=== PATIENT | male | born 1960 | race Caucasian/White ===

== ENCOUNTER 2016-04-19 12:02 | Inpatient (IN) | payer MEDICARE, OTHER ==
--- NOTE | ~2016-04-19 | OR ---
Unit #: [id number] #: [id number] Patient: LUIS E GIRALDO SR [id number] [address] [place], [place] [address] [id number] I MR#: [id number] NAME: LUIS E GIRALDO SR ROOM: 464 Date of Procedure: 04/19/2016 Admission Date: 04/19/2016 Surgeon: Silvia Robertson M.D. : 1960 Attending Physician: Silvia Robertson M.D. Primary Care Physician: Abisai Pennington M.D. OPERATIVE REPORT PREOPERATIVE DIAGNOSES 1. Left postoperative foot infection. 2. Left first metatarsal base osteomyelitis. POSTOPERATIVE DIAGNOSES 1. Left postoperative foot infection. 2. Left first metatarsal base osteomyelitis. PROCEDURE PERFORMED Left foot incision and debridement with excision of the first metatarsal base (62297). USPS LETTER CARRIER Henri. ANESTHESIA General. INDICATIONS FOR SURGERY The patient is a 55-year-old poorly controlled diabetic, who is 3 weeks status post excision of the first metatarsal for osteomyelitis. The patient has had dehiscence of his proximal wound and now has purulent drainage. MRI documents osteo of his residual first metatarsal base. The patient is therefore to undergo excision of the first metatarsal base, excision of all infected tissue, and packing of the wound open. DESCRIPTION OF PROCEDURE The patient was taken to the operating room and placed in supine position. General anesthetic was induced. The left foot was identified as the correct operative extremity during the time-out procedure. The IV antibiotic protocol was followed. The left foot was then prepped and draped in the usual sterile fashion. The leg was exsanguinated with an Esmarch bandage, which was left wrapped around the ankle to act as a tourniquet. The antibiotic protocol was not followed. The sutures were removed and the incision was opened in its entirety and extended proximally an additional 2 cm. The first metatarsal base was exposed with subperiosteal dissection. Aerobic and anaerobic cultures were taken. The first metatarsal base was then excised in its entirety and sent to pathology for examination. All infected and necrotic appearing tissue was then removed sharply. The wound was then irrigated with 2 L of normal saline. The wound was packed open with Betadine-soaked Unit #: [id number] #: [id number] Patient: KRISTAL MALAVE,LUIS E Jj roll gauze, 4x4s, Kerlix, Oscar wrap, and postop shoe were applied. The patient was then transported to the recovery room in stable condition. ESTIMATED BLOOD LOSS Minimal. COMPLICATIONS None. SPECIMENS Left first metatarsal base and aerobic and anaerobic cultures. TOURNIQUET TIME Approximately 15 minutes. Dictated byKelly Quiles/tate TD: 04/20/2016 04:41 JOB #: [id number] OPERATIVE REPORT X Nadeem Robertson MD X PROCEDURE OPERATIVE NOTE
--- NOTE | ~2016-04-19 | CO ---
Unit #: [id number] #: [id number] Patient: LUIS E GIRALDO SR [id number] [address] [place], [place] [address] [id number] I MR#: [id number] NAME: LUIS E GIRALDO SR ROOM: 464 Age: 55 Sex: M Admission Date: 04/19/2016 : 1960 Attending Physician: Silvia Robertson M.D. Primary Care Physician: Abisai Pennington M.D. Requesting Physician: Silvia Robertson M.D. Consultation Date: 04/20/2016 CONSULTATION REPORT REASON FOR CONSULTATION Left foot infection. The patient is a 55-year-old male known to us from previous admission a few weeks ago when he had left foot infection and underwent incision and debridement with left first metatarsal amputation. Cultures were positive for Streptococcus milleri. The patient was sent out on daptomycin to be taken for six weeks with a stop date of April 28. He came back because of wound dehiscence and evidence of infection, status post I and D with first metatarsal base excision. Cultures are pending. Gram stain with Gram-negative rods. Infectious disease consultation requested for the evaluation of antibiotic management. Please refer to previous note for further details on the patient. PHYSICAL EXAMINATION Right now, he is sitting comfortably in bed, does not seem to be in any distress. VITAL SIGNS: T-max 101.5, pulse 81, respirations 20, blood pressure 150/68. HEENT: Unremarkable. CHEST: Clear to auscultation. HEART: Normal S1 and S2. ABDOMEN: Soft, nontender. EXTREMITIES: Foot with a dressing. DIAGNOSTIC STUDIES IMAGING: Chest x-ray negative for any acute changes. LABORATORY: BUN 31, creatinine 1.9, CPK 29, WBC 7.5, hemoglobin 7.1, platelets 273. Viral cultures pending. Gram stain with Gram-negative rods. ASSESSMENT 1. Left foot infection, status post first metatarsal excision: Cultures positive for Streptococcus milleri. 2. Wound dehiscence, now status post base of first metatarsal excision with gram stain showing Gram-negative rods. 3. Diabetes. 4. Peripheral vascular disease. 5. Morbid obesity. PLAN (1) . Continue with daptomycin. The patient seems to be Unit #: [id number] #: [id number] Patient: KRISTAL MALAVE,LUIS E Jj tolerating well and will go ahead and add aztreonam 2 g IV q.8 hours. He has got a history of anaphylaxis to penicillin. Will check ESR, CRP, follow up on his (2) cultures. Adjust antibiotics accordingly. Further recommendations depending upon the course. I would like to thank Dr. Robertson for asking us to participate in the care of this patient. We will follow this patient along with you. Dictated by... Kelly Garcia TD: 04/25/2016 07:22 JOB #: [id number] CONSULTATION REPORT X Javid Busby MD X CONSULTATION REPORT
--- NOTE | ~2016-04-19 | DS ---
Unit #: [id number] #: [id number] Patient: LUIS E GIRALDO SR [id number] [address] [place], [place] [address] [id number] I MR#: [id number] NAME: LUIS E GIRALDO SR ROOM: 464 Age: 55 Sex: M Admission Date: 04/19/2016 : 1960 Discharge Date: 04/25/2016 Attending Physician: Silvia Robertson M.D. Primary Care Physician: Abisai Pennington M.D. DISCHARGE SUMMARY CHIEF COMPLAINT Left foot infection. HISTORY OF PRESENT ILLNESS The patient is a 55-year-old male with poorly controlled insulin dependent diabetes who underwent left hallux debridement and then hallux disarticulation and then partial first metatarsal amputation by me 3 weeks ago who now has persistent purulent drainage from his wound. He is therefore admitted for removal of the remainder of the base of his first metatarsal. HOSPITAL COURSE The patient was taken to the operating room on 04/19/2016 where he underwent removal of the left fifth metatarsal base. The wound was left open and debrided. The wound was packed open and daily dressing changes were performed. The patient's cultures grew Klebsiella pneumoniae and Eggerthella. The patient was followed by the internal medicine service, by public speaking coach, and by infectious disease. He was ready for discharge on the sixth postoperative day. He was maintained on IV Cubicin and meropenem. His wound markedly improved and showed appropriate granulation tissue and no further purulence. FINAL DIAGNOSES Left diabetic foot amputation. OPERATION PERFORMED Left first metatarsal base excision. DISPOSITION AND RECOMMENDATIONS 1. The patient is discharged to rehab. He will continue physical therapy and occupational therapy at that location. He may weightbear partially on his heel in a postoperative shoe. 2. Daily dressing changes using 1/2 strength Dakin to the left foot, wet to dry. 3. Follow up in my office in one week. Call [phone] to make the appointment. DISCHARGE MEDICATIONS Discharge medications are as follows: 1. Diphenhydramine hydrochloride 25 mg p.o. q.6 hours p.r.n. itching. 2. Promethazine 12.5 mg p.o. q.4 hours p.r.n. nausea. 3. Coreg 25 mg p.o. b.i.d. 4. Amlodipine 10 mg p.o. daily. 5. Colace 100 mg p.o. b.i.d. Unit #: [id number] #: [id number] Patient: LUIS E GIRALDO SR 6. Milk of magnesia 30 mL p.o. daily p.r.n. constipation. 7. Lasix 40 mg p.o. b.i.d. and 20 mg p.o. daily as needed for edema. 8. Lipitor 20 mg p.o. q.h.s. 9. Hydralazine 50 mg p.o. t.i.d. 10. Levemir insulin FlexTouch 20 units subcutaneously daily. 11. Insulin NovoLog per sliding scale. 12. Famotidine 20 mg p.o. daily. 13. Aspirin 81 mg p.o. daily. 14. Percocet 5/325 one to two p.o. q.6 hours p.r.n. pain. 15. Nitroglycerin sublingual 0.4 mg p.r.n. chest pain. 16. Daptomycin 800 mg IV daily. 17. Meropenem 500 mg IV q.12 hours. Dictated by..Kelly Wright/brayan TD: 04/25/2016 09:05 JOB #: [id number] DISCHARGE SUMMARY X Nadeem Robertson MD X DISCHARGE SUMMARY
--- NOTE | ~2016-04-19 | CO ---
Unit #: [id number] #: [id number] Patient: LUIS E RALPH SR [id number] [address] [place], [place] [address] [id number] I MR#: [id number] NAME: LUIS E RALPH SR ROOM: 464 Age: 55 Sex: M Admission Date: 04/19/2016 : 1960 Attending Physician: Silvia Robertson M.D. Primary Care Physician: Abisai Pennington M.D. Requesting Physician: Silvia Robertson M.D. Consultation Date: 04/19/2016 CONSULTATION REPORT REASON FOR CONSULTATION Medical management. HISTORY OF PRESENT ILLNESS Mr. Ralph is a 55-year-old male well known to our service secondary to a recent admission. He is a patient of Dr. Pennington, who was discharge from our service on April 04, 2016 after hospitalization secondary to acute renal failure along with the metabolic acidosis and hyperkalemia. Patient also does have a history of left foot osteo. He is status post big toe amputation per Dr. Robertson, was also evaluated at that hospitalization, was treated with the antibiotics and subsequently was discharged to a rehab facility secondary to frequent falls and general deconditioning. Patient was brought back by orthopedic surgery and he underwent the left foot I/D with the debridement per Dr. Robertson. Our consult was kindly asked for general medical management and diabetes management since patient does have a history of insulin-dependent diabetes. Patient currently denies any active problems. He denies any acute chest pain, shortness of air or dyspnea, headache, dizziness, fever or chills, nausea, vomiting, diarrhea or abdominal pain. Again, he is a postop from left foot debridement, resting comfortably, states the pain is well under control. REVIEW OF SYSTEMS So, a 12-point review of systems on this patient basically is negative except as above. PAST MEDICAL HISTORY Past medical history is significant for: 1. History of insulin-dependent diabetes. 2. Hypertension. 3. Dyslipidemia. 4. Peripheral vascular disease. 5. Left lower extremity osteo. 6. Morbid obesity. 7. Left lower extremity gangrene and osteomyelitis. PAST SURGICAL HISTORY Past surgical history is significant for: 1. Left big toe hallux amputation. 2. Ultrasound-guided cannulation of the right common femoral artery, abdominal arteriogram with the balloon dilation per Vascular Surgery. 3. Recent left first metatarsal amputation from March of this year from the previous hospitalization. Unit #: [id number] #: [id number] Patient: LUIS E RALPH SR CURRENT MEDICATIONS Current medications on this gentleman include Ambien, Cubicin, hydralazine, Lipitor, Coreg, Colace, furosemide, sliding scale insulin, Nitrostat p.r.n., milk of magnesia, Benadryl, morphine, Percocet, Pepcid, Norvasc, topical HySept, aspirin, Levemir 20 units subcu q.a.m., and [place] p.r.n. ALLERGIES Penicillin. SOCIAL HISTORY No current tobacco, alcohol or illicit drugs. FAMILY HISTORY Unremarkable. PHYSICAL EXAMINATION GENERAL: Patient is a 55-year-old gentleman who is morbidly obese, not in no acute distress. VITAL SIGNS: BP 152/67, heart rate 77, respirations 18, temperature 97.6. HEENT: Head is atraumatic. Pupils equal, round and reactive to light and accommodation. Extraocular muscles intact. Oropharynx clear. NECK: Supple. No mass. No JVD. No bruits. CHEST: Diminished at the bases but generally clear. CARDIOVASCULAR EXAM: S1, S2. No murmurs. ABDOMEN: Obese, soft, nontender and nondistended. Bowel sounds present. EXTREMITIES: Lower extremities with some trace edema. There is a clean dressing on the left foot. DIAGNOSTIC STUDIES LABORATORY: Only available CBC from yesterday which showed a white count of 7.9, hemoglobin and hematocrit 8.7 and 26.2. Blood glucose 128 and then 169. ASSESSMENT AND PLAN 1. History of left foot osteomyelitis, status post left big toe and then metatarsal amputation status post recent I/D done today: Continue local wound care per Orthopedic Surgery. Continue current antibiotics. 2. History of recent acute renal failure: Will check chemistry, continue gentle hydration. 3. History of peripheral vascular disease, status post balloon dilation per Vascular Surgery in the past. 4. Insulin-dependent diabetes, currently acceptable control: Continue current insulin regime. 5. Morbid obesity. 6. Hypertension: Continue current. 7. Anemia of chronic disease: Monitor hemoglobin and hematocrit closely. 8. GI and DVT prophylaxis: Continue Pepcid. We will start on subcu heparin if okay with orthopedic surgery. I would like to thank Dr. Robertson for allowing us to participate in this patient's care. We will follow the patient along with you. Unit #: [id number] #: [id number] Patient: LUIS E RALPH SR Dictated by..Alin Anthony M.D. OC/cf TD: 04/19/2016 22:27 JOB #: [id number] CONSULTATION REPORT X Bishop Anthony MD CONSULTATION REPORT
--- NOTE | ~2016-04-19 | OR ---
Unit #: [id number] #: [id number] Patient: LUIS E GIRALDO SR [id number] [address] [place], [place] [address] [id number] MR#: [id number] NAME: LUIS E GIRALDO SR ROOM: 464 Date of Procedure: 03/28/2016 Admission Date: 04/19/2016 Surgeon: Isaiah Ferguson M.D. : 1960 Attending Physician: Silvia Robertson M.D. Primary Care Physician: Abisai Pennington M.D. OPERATIVE REPORT PROCEDURE PERFORMED Non-tunneled dialysis catheter placement. PREOPERATIVE DIAGNOSIS Acute renal injury, requiring dialysis. POSTOPERATIVE DIAGNOSIS Acute renal injury, requiring dialysis. INDICATIONS FOR PROCEDURE This is a 55-year-old gentleman known to our service, who had recently undergone an angiogram and left lower extremity angioplasty. He now presents emergently to the emergency room with elevated creatinine and potassium, required dialysis. I talked to the patient about the risks and benefits of the bedside procedure. The risks include, but not limited to, pneumothorax requiring thoracostomy, injury to the blood vessels, bleeding, line infection, line malposition, and need for further procedures. The benefit of the procedure would be for the patient to receive immediate dialysis. The patient expressed understanding and elected to proceed. DESCRIPTION OF PROCEDURE After informed consent was obtained, the patient was prepped and draped in standard fashion. Using ultrasound, I confirmed his right internal jugular vein was widely patent. The patient was given 1% lidocaine into the skin, I then accessed the right internal jugular vein with ultrasound, with a micro- needle, then advanced a micro-Glidewire, I then advanced a micro-sheath catheter. There was no pulsatile flow noted from the micro-sheath catheter. I then advanced a starter wire, which went smoothly. I then serially dilated the neck incision. I then advanced the non-tunneled dialysis catheter to the hub. All ports were flushed and aspirated easily. The catheter was then secured into place with 3-0 nylons. Sterile dressings were applied. The patient tolerated the procedure well. Postprocedure chest x-ray was ordered for confirmation in position. Dictated by... Isaiah Ferguson M.D. Loree Unit #: [id number] #: [id number] Patient: LUIS E GIRALDO SR TD: 04/24/2016 00:47 JOB #: [id number] OPERATIVE REPORT X X PROCEDURE OPERATIVE NOTE
--- NOTE | ~2016-04-19 | CO ---
Unit #: [id number] #: [id number] Patient: LUIS E RALPH SR [id number] [address] [place], [place] [address] [id number] Nina MR#: [id number] NAME: LUIS E RALPH SR ROOM: 464 Age: 55 Sex: M Admission Date: 04/19/2016 : 1960 Attending Physician: Silvia Robertson M.D. Primary Care Physician: Abisai Pennington M.D. Consultation Date: 04/21/2016 CONSULTATION REPORT REASON FOR CONSULT Renal failure, hyperkalemia. Thank you very much for asking us to see this patient in consultation. HISTORY OF PRESENT ILLNESS Mr. Luis E Ralph is a 55-year-old gentleman, who I actually saw in March of this year, where he had acute renal failure, severe hyperkalemia with a creatinine of 6.7 and a potassium of 7.2. In the emergency room at that time, I felt he had renal failure from contrast dye for previous arteriogram as well as possible Bactrim as well as a wound infection in the left foot, osteomyelitis. He underwent emergent hemodialysis. His renal function improved with creatinine down to 2.2 when he was discharged on 04/05/2016 and was down to 1.6 on 04/16/2016. He presented to the hospital here, where he underwent debridement of his left foot wound on 04/19/2016. He has grown out Klebsiella ESBL. He was sent home on Cubicin, is now switched over to Merrem. His creatinine was 2.0 yesterday and up to 2.4 today with a potassium of 5.7 today. Because of this, I was asked to see the patient. I do not see any obvious non-steroidals or obvious nephrotoxins at this point in time. He is alert. He is eating okay. His foot sore, but not bad. He denies any shortness of breath, chest pain, any nausea or vomiting. He denies any urinary symptoms. Currently, he denies any cough or any other issues. PAST MEDICAL HISTORY History of severe peripheral vascular disease as mentioned above with status post left foot wound debridement with osteomyelitis, history of obesity, history of diabetes mellitus. He has a history of appears to have acute renal failure that again improved. During the hospitalization, he had negative serum protein immunofixation, normal components. Negative hepatitis C. He did have a ratio of protein-creatinine around 3 g. It was felt he probably had underlying diabetic renal disease. He had a negative renal ultrasound at that time. He has a history of hyperlipidemia, history of hypertension, history of anemia. MEDICATIONS Currently include Merrem. His Cubicin has been discontinued. Carvedilol, hydralazine, Lipitor, Lasix 40 mg b.i.d. He is on Pepcid as well as Norvasc 10 mg a day. He was given Kayexalate 30 g p.o. x1 dose earlier today. SOCIAL HISTORY Previous smoker, none now. . No alcohol. Unit #: [id number] #: [id number] Patient: LUIS E RALPH SR ALLERGIES Allergic to penicillin. FAMILY HISTORY Negative for any kidney disease. REVIEW OF SYSTEMS As mentioned in the HPI, otherwise negative. PHYSICAL EXAMINATION GENERAL: He is alert and oriented. VITAL SIGNS: Temperature is 98.8, although it was 101.5 the first few hours of admission; pulse 69 to 80; blood pressure 109 to 135 over 30s to 50s. HEENT: Normocephalic and atraumatic. Pupils are equal, round, and reactive to light. Extraocular muscles are intact. Hearing appears to be normal. Mouth is clear. No erythema. No exudate. NECK: Supple. No adenopathy. CARDIAC: Regular rhythm without a rub. No S3 or S4. LUNGS: Clear bilaterally. No wheezes, rhonchi, or rales. ABDOMEN: Overweight. Bowel sounds positive. Nontender, soft. He has some trace body edema. EXTREMITIES: He has positive lower extremity edema bilaterally. His left foot is dressed. Skin: No acute rashes. NEUROLOGIC: Grossly intact. : Deferred. DIAGNOSTIC STUDIES LABORATORY RESULTS: Shows sodium of 136, potassium 5.7, chloride is 105, bicarb is 24, BUN and creatinine are 34 and 2.4, glucose 128, calcium is 8.1. CPK is 44. Hemoglobin is down to 7.3, white count 10,100, platelets 298,000. Again, wound has grown out ESBL Klebsiella. ASSESSMENT AND PLAN 1. Acute renal failure. Again, the patient with increasing BUN and creatinine. I do not see any obvious nephrotoxins. Certainly, it could just be related to surgery. He does have some increased edema, but he is also on some IV fluids and Lasix and he is taking orally and what I would like to just go ahead and discontinue both his fluids and his Lasix and see how he does on his own. Certainly, he is on amlodipine and that could be contributing to his edema. We will check a BMP later tonight and again in the morning. We will check a bladder scan for postvoid residual. We will repeat UA, culture and sensitivity, urine eosinophils. 2. Hyperkalemia secondary to renal insufficiency. We will change his diet to a low-potassium diet, Kayexalate x1. We will check potassium later this evening and treat medically unless it worsens significantly. Would certainly stay away from any type of potassium-retaining drugs. 3. Hypertension, again due to his renal insufficiency and his hyperkalemia. Avoid BECCA inhibitors, angiotensin receptor blockers, and potassium-sparing diuretics. 4. History of extended-spectrum beta-lactamases Klebsiella, osteomyelitis, wound infection. 5. Diabetes mellitus. 6. Anemia. The patient's hemoglobin is dropping. One unit of packed red blood cells had been ordered by primary. Unit #: [id number] #: [id number] Patient: MELTONY MLAAVE,LUIS E Jj Dictated by..Kelly Rainey/tate TD: 04/22/2016 05:42 JOB #: [id number] CONSULTATION REPORT X Aracelis Sharma MD X CONSULTATION REPORT
--- NOTE | ~2016-04-19 | CR72 ---
[facility] A Service of [facility] & [facility] RADIOLOGY TEXT RESULTS PATIENT: LUIS E GIRALDO SR LOCATION: [facility]- : [birth year] UNIT #: [id number] AGE: [address]: Nadeem Robertson MD SEX: M ORDER DR: [id number] [facility] [address]. [place], [place] [address] [id number] MR#: [id number] Acc #: [id number] NAME: LUIS E GIRALDO SR : 1960 SEX: M STUDY DATE/TIME: 04/22/2016 0119 UNIT: [facility] ROOM: Count includes the [facility] STUDY DESCRIPTION: CR Chest Single View Portable Attending Physician: Silvia Robertson M.D. Ordering Physician: Silvia Robertson M.D. Primary Care Physician: Abisai Pennington M.D. MEDICAL IMAGING REPORT This report is preliminary unless electronic signature is present EXAM Portable chest, 04/22 at 0119 hours. INDICATION PICC placement today. FINDINGS AP portable chest compared with 03/28/2016. Right IJ line has been removed. Right arm PICC is in the SVC. Heart size stable. Left lung clear. Mild infiltrate or atelectasis at the right base with a small volume of right pleural fluid. No pneumothorax. Dictated by... Luis E Schrader Jr., M.D. THIS IS AN ELECTRONICALLY VERIFIED REPORT Luis E Schrader Jr., M.D. at 04/22/2016 8:38 PM DIANE/stefano TD: 04/22/2016 10:05 JOB #: [id number] MEDICAL IMAGING REPORT COPY
--- NOTE | ~2016-04-19 | EKG ---
PATIENT: LUIS E GIRALDO UNIT #: [id number] Ventricular Rate: 83 BPM Atrial Rate: 83 BPM P-R Interval: 144 ms QRS Duration: 98 ms Q-T Interval: 354 ms QTC Calculation(Bezet): 415 ms P [place]: 24 degrees Calculated R [place]: 44 degrees Calculated T [place]: -29 degrees Diagnosis Line: Normal sinus rhythm Diagnosis Line: Nonspecific ST and T wave abnormality Diagnosis Line: Abnormal ECG Diagnosis Line: Diagnosis Line: Confirmed by ZOE TAFOYA MD ([id number]) on Diagnosis Line: 04/22/2016 5:18:25 PM INTERPRETING MD: DANNY
[~2016-04-19 12:02] MED LIST: ACETAMINOPHEN325 MG PO; ASPIRIN EC81 M1 PO; ASPIRIN81 M1 PO; BACTRIM DS TABL1 TA1 PO; CARVEDILOL25 MG PO; COREG PO; COREG3.125 MG PO; ERY-TAB333 M1 PO; FARXIGA5 MG; GLIPIZIDE10 MG PO; GLUCOPHAGE500 MG PO; GLUCOTROL10 MG PO; GLUCOVANCE 1.251 TAB PO; GLYBURIDE PO; HYDROCODON-ACE1 EAC5 PO; KEFLEX500 MG PO; LASIX PO; LASIX20 MG PO; LEVAQUIN750 M1 PO; LEVEMIR FL100 UNIT/1 SUBQ; LIPITOR20 MG PO; METFORMIN PO; NEURONTIN300 MG PO; NITRODISC0.4 MG SL; NITROGLYGERIN0.4 MG SL; NO MEDICATIONS; PRAVASTATIN SOD40 MG PO; PRILOSEC PO; ULTRAM PO; ZESTRIL5 MG PO; ZITHROMAX PO; [UNRECOGNIZED DRUG - OTHER]
[2016-04-19] MEDS ORDERED: FUROSEMIDE40 MG PO (12:38)
[2016-04-19] MEDS ORDERED: AMLODIPINE BESY10 MG PO (12:41)
[2016-04-19] MEDS ORDERED: HYDRALAZINE HCL50 MG PO (12:41)
[2016-04-19] MEDS ORDERED: FAMOTIDINE20 M1 PO (12:41)
[2016-04-19] MEDS ORDERED: PERCOCET 5-3251 TAB PO (12:42)
[2016-04-19] MEDS ORDERED: DOCUSATE SODIU100 MG PO (12:42)
[2016-04-19] MEDS ORDERED: PROMETHAZINE12.5 MG PO (12:43)
[2016-04-19] MEDS ORDERED: BANOPHEN25 M1 PO (12:43)
[2016-04-19] MEDS ORDERED: MILK OF MAGNESIA PO (12:44)
[2016-04-19] MEDS ORDERED: LASIX20 MG PO (12:44)
[2016-04-19] MEDS ORDERED: NOVOLOG100 U/ML (12:45)
[2016-04-19] MEDS ORDERED: CUBICIN IV (12:50)
[2016-04-20 07:03] LABS: BASOPHIL# 0.2 X10e3 (0-0.3); BASOPHIL% 1.5 % (0-2.5); EOSINOPHIL# 0.4 X10e3 (0-0.7); EOSINOPHIL% 3.9 % (0.0-7.0); HEMATOCRIT 25.6 % (38.0-50.0); HEMOGLOBIN 8.1 gm/dL (13.0-16.0); LYMPHOCYTE# 2.4 X10e3 (1.0-3.5); LYMPHOCYTE% 21.5 % (17.0-45.0); MEAN CELL VOLUME 85.4 FL (83-96); MEAN CORPUSCULAR HEMOGLOBIN 27.1 PG (28-34); MEAN CORPUSCULAR HGB CONC 31.7 g/dL (30-36); MEAN PLATELET VOLUME 7.3 FL (6.5-11.5); MONOCYTE# 1.3 X10e3 (0-1.0); MONOCYTE% 11.9 % (3.0-12.0); NEUTROPHIL# 6.8 X10e3 (1.5-7.1); NEUTROPHIL% 61.2 % (40-75); PLATELET COUNT 378 X10e3 (140-420); RED BLOOD COUNT 2.99 X10e (3.90-5.60); WHITE BLOOD COUNT 11.1 X10e3 (4.0-10.5)
[2016-04-20 07:04] LABS: DIFF IND NO
[2016-04-20 07:44] LABS: CALCIUM SERUM 8.2 mg/dL (8.4-10.2); GLOM FILT RATE Estimated 37.1 mL/min (>60); POTASSIUM 4.7 mmol/L (3.5-5.1)
[2016-04-21 03:34] LABS: HEMATOCRIT 21.9 % (38.0-50.0); HEMOGLOBIN 7.3 gm/dL (13.0-16.0); MEAN CELL VOLUME 85.7 FL (83-96); MEAN CORPUSCULAR HEMOGLOBIN 28.6 PG (28-34); MEAN CORPUSCULAR HGB CONC 33.3 g/dL (30-36); RED BLOOD COUNT 2.55 X10e (3.90-5.60); RED CELL DISTRIBUTION WIDTH 15.9 % (11.0-15.5); WHITE BLOOD COUNT 10.1 X10e3 (4.0-10.5)
[2016-04-21 03:43] LABS: BUN/CREATININE RATIO 14.16; CALCIUM SERUM 8.1 mg/dL (8.4-10.2); CREATININE SERUM 2.4 mg/dL (0.6-1.4)
[2016-04-21 04:17] LABS: POTASSIUM 5.7 mmol/L (3.5-5.1)
[2016-04-21 18:02] LABS: BUN/CREATININE RATIO 15.71; CALCIUM SERUM 7.8 mg/dL (8.4-10.2); CREATININE SERUM 2.1 mg/dL (0.6-1.4); POTASSIUM 4.7 mmol/L (3.5-5.1)
[2016-04-22 04:04] LABS: BASOPHIL# 0.1 X10e3 (0-0.3); BASOPHIL% 0.9 % (0-2.5); EOSINOPHIL# 0.8 X10e3 (0-0.7); EOSINOPHIL% 10.8 % (0.0-7.0); HEMOGLOBIN 7.1 gm/dL (13.0-16.0); LYMPHOCYTE# 2.2 X10e3 (1.0-3.5); LYMPHOCYTE% 29.2 % (17.0-45.0); MEAN CELL VOLUME 84.7 FL (83-96); MEAN CORPUSCULAR HEMOGLOBIN 28.8 PG (28-34); MEAN PLATELET VOLUME 7.5 FL (6.5-11.5); MONOCYTE# 0.8 X10e3 (0-1.0); MONOCYTE% 10.5 % (3.0-12.0); NEUTROPHIL# 3.6 X10e3 (1.5-7.1); NEUTROPHIL% 48.6 % (40-75); PLATELET COUNT 273 X10e3 (140-420); RED BLOOD COUNT 2.48 X10e (3.90-5.60); RED CELL DISTRIBUTION WIDTH 16.1 % (11.0-15.5); WHITE BLOOD COUNT 7.5 X10e3 (4.0-10.5)
[2016-04-22 04:06] LABS: DIFF IND YES
[2016-04-22 04:21] LABS: ALBUMIN SERUM 2.4 g/dL (3.5-5.0); BILIRUBIN,TOTAL 0.5 mg/dL (0.2-2.0); BUN/CREATININE RATIO 16.31; CALCIUM SERUM 7.6 mg/dL (8.4-10.2); CREATININE SERUM 1.9 mg/dL (0.6-1.4); GLOM FILT RATE Estimated 39.3 mL/min (>60); MAGNESIUM 1.9 mg/dL (1.6-3.0); PHOSPHOROUS 5.4 mg/dL (2.5-4.6); POTASSIUM 4.1 mmol/L (3.5-5.1); PROTEIN TOTAL SERUM 5.6 g/dL (6.0-8.3)
[2016-04-22 05:02] LABS: PLATELET ESTIMATE NORMAL (NORMAL)
[2016-04-22 08:28] LABS: CK TOTAL 30 IU/L (36-174)
[2016-04-22 16:04] LABS: URINE SOURCE CLEAN CATCH
[2016-04-22 16:13] LABS: URINE APPEARANCE CLEAR; URINE BILIRUBIN NEG (NEG); URINE BLOOD 3+ (NEG); URINE COLOR YELLOW; URINE GLUCOSE NEG (NEG); URINE KETONE NEG (NEG); URINE LEUKOCYTE ESTERASE NEG (NEG); URINE NITRATE NEG (NEG); URINE PH 5.5 (5-8); URINE PROTEIN 3+ (NEG); URINE SPECIFIC GRAVITY 1.023 (1.003-1.035)
[2016-04-22 16:15] LABS: URBCS1 AUWI 200-300 /[HPF] (0-2); URINE BACTERIA AUWI NEG (NEGATIVE); URINE SQUAMOUS EPITHELIAL CELL FEW /[HPF]
[2016-04-22 16:20] LABS: U HYALINE CASTS AUWI 0-2 /[LPF]
[2016-04-23 09:29] LABS: BASOPHIL# 0.1 X10e3 (0-0.3); BASOPHIL% 1.1 % (0-2.5); EOSINOPHIL# 0.9 X10e3 (0-0.7); EOSINOPHIL% 10.5 % (0.0-7.0); HEMATOCRIT 25.7 % (38.0-50.0); HEMOGLOBIN 8.7 gm/dL (13.0-16.0); LYMPHOCYTE# 2.4 X10e3 (1.0-3.5); LYMPHOCYTE% 27.2 % (17.0-45.0); MEAN CELL VOLUME 84.9 FL (83-96); MEAN CORPUSCULAR HEMOGLOBIN 28.7 PG (28-34); MEAN CORPUSCULAR HGB CONC 33.8 g/dL (30-36); MEAN PLATELET VOLUME 7.4 FL (6.5-11.5); MONOCYTE# 0.7 X10e3 (0-1.0); MONOCYTE% 7.8 % (3.0-12.0); NEUTROPHIL# 4.7 X10e3 (1.5-7.1); NEUTROPHIL% 53.4 % (40-75); PLATELET COUNT 352 X10e3 (140-420); RED BLOOD COUNT 3.02 X10e (3.90-5.60); RED CELL DISTRIBUTION WIDTH 15.6 % (11.0-15.5); WHITE BLOOD COUNT 8.9 X10e3 (4.0-10.5)
[2016-04-23 09:46] LABS: DIFF IND NO
[2016-04-23 10:00] LABS: BUN/CREATININE RATIO 16.66; CALCIUM SERUM 8.1 mg/dL (8.4-10.2); CREATININE SERUM 1.5 mg/dL (0.6-1.4); GLOM FILT RATE Estimated 51.6 mL/min (>60); MAGNESIUM 1.9 mg/dL (1.6-3.0); POTASSIUM 4.3 mmol/L (3.5-5.1)
[2016-04-24 03:24] LABS: BASOPHIL# 0.1 X10e3 (0-0.3); BASOPHIL% 0.9 % (0-2.5); DIFF IND NO; EOSINOPHIL% 10.6 % (0.0-7.0); HEMATOCRIT 24.7 % (38.0-50.0); HEMOGLOBIN 8.4 gm/dL (13.0-16.0); LYMPHOCYTE# 3.3 X10e3 (1.0-3.5); LYMPHOCYTE% 33.9 % (17.0-45.0); MEAN CELL VOLUME 85.1 FL (83-96); MEAN CORPUSCULAR HEMOGLOBIN 28.9 PG (28-34); MEAN PLATELET VOLUME 7.3 FL (6.5-11.5); MONOCYTE# 0.7 X10e3 (0-1.0); MONOCYTE% 7.5 % (3.0-12.0); NEUTROPHIL# 4.6 X10e3 (1.5-7.1); NEUTROPHIL% 47.1 % (40-75); PLATELET COUNT 332 X10e3 (140-420); RED CELL DISTRIBUTION WIDTH 15.7 % (11.0-15.5); WHITE BLOOD COUNT 9.7 X10e3 (4.0-10.5)
[2016-04-24 03:42] LABS: BLOOD UREA NITROGEN 25 mg/dL (9-23); BUN/CREATININE RATIO 19.23; CALCIUM SERUM 8.1 mg/dL (8.4-10.2); CARBON DIOXIDE 26 mmol/L (22-31); CHLORIDE 111 mmol/L (100-111); CPK (CREATINE PHOSPHOKINASE) 22 IU/L (36-174); CREATININE SERUM 1.3 mg/dL (0.6-1.4); GLOM FILT RATE Estimated ABOVE60 mL/min (>60); GLUCOSE FASTING 135 mg/dL (70-110); POTASSIUM 4.4 mmol/L (3.5-5.1); SODIUM 141 mmol/L (135-145)
[2016-04-24 06:17] LABS: URINE SOURCE CLEAN CATCH
[2016-04-24 06:24] LABS: URINE APPEARANCE CLEAR; URINE BILIRUBIN NEG (NEG); URINE BLOOD 3+ (NEG); URINE COLOR YELLOW; URINE GLUCOSE NEG (NEG); URINE KETONE NEG (NEG); URINE LEUKOCYTE ESTERASE NEG (NEG); URINE NITRATE NEG (NEG); URINE PH 6.5 (5-8); URINE PROTEIN 3+ (NEG); URINE SPECIFIC GRAVITY 1.015 (1.003-1.035); URINE UROBILINOGEN 0.2 MG/DL (NEG)
[2016-04-24 06:26] LABS: CULTURE INDICATED? YES; URBCS1 AUWI 50-100 /[HPF] (0-2); URINE BACTERIA AUWI NEG (NEGATIVE); URINE SQUAMOUS EPITHELIAL CELL OCC /[HPF]
[2016-04-25 04:00] LABS: CALCIUM SERUM 8.1 mg/dL (8.4-10.2); CREATININE SERUM 1.5 mg/dL (0.6-1.4); GLOM FILT RATE Estimated 51.6 mL/min (>60); POTASSIUM 4.4 mmol/L (3.5-5.1)
[2016-04-26 08:04] LABS: BASOPHIL% 0.1 % (0-2.5); EOSINOPHIL% 10.8 % (0.0-7.0); HEMATOCRIT 27.2 % (38.0-50.0); HEMOGLOBIN 9.2 gm/dL (13.0-16.0); LYMPHOCYTE# 3.4 X10e3 (1.0-3.5); LYMPHOCYTE% 35.2 % (17.0-45.0); MEAN CELL VOLUME 85.6 FL (83-96); MEAN CORPUSCULAR HEMOGLOBIN 28.9 PG (28-34); MEAN CORPUSCULAR HGB CONC 33.7 g/dL (30-36); MONOCYTE# 0.7 X10e3 (0-1.0); MONOCYTE% 6.9 % (3.0-12.0); NEUTROPHIL# 4.5 X10e3 (1.5-7.1); PLATELET COUNT 375 X10e3 (140-420); RED BLOOD COUNT 3.18 X10e (3.90-5.60); RED CELL DISTRIBUTION WIDTH 15.9 % (11.0-15.5); WHITE BLOOD COUNT 9.7 X10e3 (4.0-10.5)
[2016-04-26 08:12] LABS: DIFF IND NO
[2016-04-26 08:32] LABS: BUN/CREATININE RATIO 14.66; CALCIUM SERUM 8.9 mg/dL (8.4-10.2); CREATININE SERUM 1.5 mg/dL (0.6-1.4); GLOM FILT RATE Estimated 51.6 mL/min (>60); POTASSIUM 4.9 mmol/L (3.5-5.1)
[2016-04-26] MEDS ORDERED: MERREM500 MG INJ (11:32)
[2016-05-05] MEDS ORDERED: IRON325 ( 651 PO (06:24)
[2016-05-05] MEDS ORDERED: NEURONTIN800 MG PO (06:24)
[2016-05-05] MEDS ORDERED: PRILOSEC PO (06:25)
== END 2016-04-26 13:55 | disposition home health service (06) | DRG 857 ==
LOC: CSUR 12:02 → CPACUOF 14:29 → C4C 16:30
PROVIDERS: Hospitalist; Internal Medicine Infectious Disease; Internal Medicine Nephrology; Orthopaedic Surgery; Physician Assistant Medical
PROC: 0QTP0ZZ Resection of Left Metatarsal, Open Approach (ICD-10-PCS; principal; 2016-04-19 13:00)
PROC: 30233N1 Transfusion of Nonautologous Red Blood Cells into Peripheral Vein, Percutaneous Approach (ICD-10-PCS; 2016-04-22)
PROC: 02HV33Z Insertion of Infusion Device into Superior Vena Cava, Percutaneous Approach (ICD-10-PCS; 2016-04-22)
PROC: B548ZZA Ultrasonography of Superior Vena Cava, Guidance (ICD-10-PCS; 2016-04-22)
PROC: 05HM33Z Insertion of Infusion Device into Right Internal Jugular Vein, Percutaneous Approach (ICD-10-PCS; 2016-04-23)
PROC: B543ZZA Ultrasonography of Right Jugular Veins, Guidance (ICD-10-PCS; 2016-04-23)
DX: T81.4XXA Infection following a procedure, initial encounter (principal); T81.30XA Disruption of wound, unspecified, initial encounter; N17.9 Acute kidney failure, unspecified; M86.8X7 Other osteomyelitis, ankle and foot; E87.5 Hyperkalemia; E11.22 Type 2 diabetes mellitus with diabetic chronic kidney disease; E66.01 Morbid (severe) obesity due to excess calories; B96.1 Klebsiella pneumoniae [K. pneumoniae] as the cause of diseases classified elsewhere; I73.9 Peripheral vascular disease, unspecified; E66.9 Obesity, unspecified; Z88.0 Allergy status to penicillin; Z87.891 Personal history of nicotine dependence; D64.9 Anemia, unspecified; Z79.4 Long term (current) use of insulin; D63.1 Anemia in chronic kidney disease; Z79.82 Long term (current) use of aspirin; E11.65 Type 2 diabetes mellitus with hyperglycemia; I12.9 Hypertensive chronic kidney disease with stage 1 through stage 4 chronic kidney disease, or unspecified chronic kidney disease; N18.9 Chronic kidney disease, unspecified
CPT/HCPCS: 71010; 80048; 80053; 81003; 82274; 82550; 82728; 82947; 83540; 83735; 84100; 84484; 84550; 85025; 85027; 85652; 86140; 86850; 86900; 86901; 86923; 87070; 87075; 87076; 87077; 87086; 87186; 87205; 88305; 88311; 89190; 93005; J0878; J1644; J1815; J2185; J2250; J2270; J2765; J2997; P9016

== ENCOUNTER 2016-05-05 07:08 | Inpatient (IN) | payer MEDICARE, OTHER ==
--- NOTE | ~2016-05-05 | CO ---
Unit #: [id number] #: [id number] Patient: LUIS E GIRALDO SR [id number] [address] [place], [place] [address] [id number] I MR#: [id number] NAME: LUIS E GIRALDO SR ROOM: 341 Age: 55 Sex: M Admission Date: 05/05/2016 : 1960 Attending Physician: Estrella Calvert M.D. Primary Care Physician: Abisai Pennington M.D. Consultation Date: 05/06/2016 CONSULTATION REPORT CHIEF COMPLAINT Left foot wound. HISTORY OF PRESENT ILLNESS The patient is a 55-year-old male, who has undergone three operations on his left foot within the past 6 weeks. His last procedure was resection of his left first metatarsal on 04/19/2016 for osteomyelitis of the first metatarsal. The patient has been undergoing serial dressing changes with 1/4 strength Dakin solution. He is on home IV meropenem for a Klebsiella and Eggerthella infection of the foot. He has been followed by Dr. Busby, Infectious Disease senior billing consultant. The patient is now admitted for exacerbation of congestive heart failure. PAST MEDICAL HISTORY Remarkable for insulin-dependent diabetes; acute kidney disease; hypertension; dyslipidemia; morbid obesity; history of peripheral vascular disease, status post balloon angioplasty; anemia; congestive heart failure. PAST SURGICAL HISTORY Multiple left foot surgeries, right and left leg arteriogram. HOME MEDICATIONS Meropenem, Coreg, aspirin, nitroglycerin, Lipitor, insulin, Lasix, hydralazine, amlodipine, daptomycin, iron, Neurontin, Prilosec. ALLERGIES Penicillin. SOCIAL HISTORY The patient is a nonsmoker. PHYSICAL EXAMINATION GENERAL: This is an obese male, in no acute distress. VITAL SIGNS: The patient is afebrile. Examination of his left foot shows an absent hallux and first ray. He has a 5 cm long by 2 cm wide granulating wound and is a medial midfoot. There was no purulent drainage. Pulses are not palpated. There was marked swelling in both lower extremities. There is no erythema or warmth. No x-rays were taken. IMPRESSION Doing well 2-1/2 weeks status post left first metatarsal amputation with a medial foot wound, which is healing by secondary intention. Unit #: [id number] #: [id number] Patient: KRISATL MALAVE,LUIS E Jj PLAN Continue IV meropenem and daptomycin. Continue daily dressing changes with 1/4 strength Dakin's. We will follow during this hospitalization. Dictated byKelly Quiles/tate TD: 05/06/2016 16:04 JOB #: [id number] CONSULTATION REPORT X Nadeem Robertson MD X CONSULTATION REPORT
--- NOTE | ~2016-05-05 | CO ---
Unit #: [id number] #: [id number] Patient: LUIS E RALPH SR [id number] [address] [place], [place] [address] [id number] I MR#: [id number] NAME: LUIS E RALPH SR ROOM: 341 Age: 55 Sex: M Admission Date: 05/05/2016 : 1960 Attending Physician: Estrella Calvert M.D. Primary Care Physician: Abisai Pennington M.D. Consultation Date: 05/06/2016 CONSULTATION REPORT REASON FOR CONSULTATION Increased shortness of breath, dyspnea. HISTORY OF PRESENT ILLNESS This is a 55-year-old white male, who back in 2010 had a cardiac cath with nonobstructive CAD with ejection fraction at that time of 20% and later that year in Dr. Tiwari's office had an echo that showed improvement of his LVEF of 50% to 55%. He has a history of systolic congestive heart failure in the past, diabetic, hypertension, peripheral vascular disease. He has been having several hospitalization over the last 2 to 3 years for peripheral vascular disease and had his some toes amputated secondary to osteomyelitis. He follows Dr. Robertson. According to the patient, his last discharge was on 04/25/[address] Robertson after getting I and D done and amputation of his left big toe and also he was discharged on IV antibiotics. The patient states he had been doing fairly well for few days, but about the last 2 days, he has been noticing increased shortness of breath with minimal exertion and paroxysmal nocturnal dyspnea and increased lower extremity edema. He says he has been taking his Lasix once a day, but he then also admits drinking a lot of oral fluids. He has been diagnosed with sleep apnea in the past, but could not afford a CPAP. He does have occasional cough, but no fever, chills. He is not having nausea, vomiting, diarrhea, or abdominal pain. Denies any chest pain; pain in his neck, bilateral jaws, shoulders, arms, or elbow. He denies any palpitations. No dizziness, presyncope, or syncope. In the emergency room, the patient's blood pressure was 167/100, respirations 27, heart rate 106, afebrile, O2 saturation was 93% on room air. His ABGs, his pH was 7.390, pCO2 of 42.4, pO2 is 162, and HCO3 of 25.6, that was on BiPAP. The patient's initial labs, his creatinine is 1.3. His BNP is 400. Lactic acid is 1.0. WBCs are 11.0 with a hemoglobin 9.1. The patient's chest x-ray shows increasing vascular congestion, interstitial edema, developing some patchy pulmonary edema. His EKG shows normal sinus rhythm. His ventricular rate 99 beats per minute with nonspecific ST-T wave abnormalities. The patient was given Lasix 80 mg x1 sublingual nitroglycerin. Dr. Robertson has been consulted because of his recent surgery. Dr. Kaufman has been consulted for hypoxia. Cardiology consulted to evaluate his congestive heart failure to help assist with managing congestive heart failure. PAST MEDICAL HISTORY 1. 07/21/2010 cardiac cath revealed LVEF of 20%, mild pulmonary artery hypertension, 10% to 40% LAD stenosis with 20% to 30% RCA stenosis. Unit #: [id number] #: [id number] Patient: KRISTAL MALAVE,LUIS E Jj Circumflex showed luminal irregularities. These are per Dr. Tiwari's dictation back in 2011. 2. Also per Dr. Tiwari's office note in 01/2011 showed improvement in his LVEF of 50% to 55%. 3. History of systolic congestive heart failure. 4. Obstructive sleep apnea, but it has not been able to afford the CPAP. 5. Peripheral vascular disease. Has angioplasty to his left lower extremity. 6. Hypertension. 7. Diabetes mellitus type 2. 8. Hyperlipidemia. 9. Morbid obesity. 318 pounds, BMI of 44. 10. Recent hospitalization on 04/25/2016, toe amputations secondary to osteomyelitis. 11. Early April 2016 he had acute renal failure with metabolic acidosis and hyperkalemia requiring dialysis. 12. He has status post balloon angioplasty in the past. PAST SURGICAL HISTORY 1. Left big toe, hallux amputation. 2. Ultrasound-guided cannulation of the right common femoral artery, abdominal arteriogram with balloon dilatation per vascular surgery. 3. Recent first metatarsal amputation. HOME MEDICATIONS Carvedilol 25 mg p.o. b.i.d., aspirin 81 mg p.o. daily, Nitrostat 0.4 mg sublingual x3 p.r.n., Lipitor 20 mg p.o. at bedtime, Levemir 20 units subcu daily, furosemide 40 mg p.o. b.i.d., hydralazine 50 mg p.o. t.i.d., amlodipine 10 mg p.o. daily, NovoLog before meals and at bedtime, Cubicin 800 mg IV daily, Merrem 500 mg injection every 12 hours, iron 324 mg p.o. daily, Neurontin 800 mg p.o. q.i.d., Prilosec 20 mg daily. ALLERGIES Penicillin. SOCIAL HISTORY The patient lives with his family. He quit smoking at the age of 37. He has no alcohol or illicit drug abuse. FAMILY HISTORY His father of a massive heart attack at the age of 52. His son is 27 years old and has several cardiac stents. His grandfather of a heart attack. REVIEW OF SYSTEMS See details in HPI. PHYSICAL EXAMINATION GENERAL: Mr. Ralph is a 55-year-old white male, in no acute respiratory distress. He is awake, alert, and oriented. VITAL SIGNS: Blood pressure is 145/74, heart rate 74, respirations 18, temperature 97.8, O2 saturations 98% on 3 L. NECK: Trachea midline. No thyromegaly or lymphadenopathy. Normal carotid upstrokes. Mild jugular venous distention. HEART: S1, S2. Regular rate and rhythm. Soft systolic murmur over aortic region and left sternal border. LUNGS: Bilateral crackles in the bases. Fine rales in bases. ABDOMEN: Obese, soft, nontender. Unit #: [id number] #: [id number] Patient: KRISTAL MALAVE,LUIS E Jj EXTREMITIES: Pedal pulses are palpable. 1 to 2+ pedal edema on his lower extremities. DIAGNOSTIC STUDIES LABORATORY RESULTS: Glucose is 147, BUN 33, creatinine 1.3, eGFR is above 60, sodium 140, potassium 4.1, chloride 107, CO2 of 28, calcium is 8.1, phosphorus is 4.6, magnesium is 1.8, total protein 6.1. WBCs 7.9, hemoglobin 8.0, hematocrit 23.9, platelets 199. Initial cardiac enzymes; CK-MB is less than 1.0 with troponin less than 0.05. CK-MB is less than 1.0, troponin less than 0.05. INR is 1.0. BNP is 400. Lactic acid is 1.0. IMAGING STUDIES: Chest x-ray shows increasing vascular congestion and interstitial edema with development of some patchy pulmonary edema. CARDIOVASCULAR STUDIES: EKG shows normal sinus rhythm with nonspecific ST-T wave abnormalities especially in lateral leads, poor R-wave progression, questionable Q-wave in lead III and V1. IMPRESSION 1. Dyspnea, hypoxia. 2. Acute on chronic systolic congestive heart failure. Left ventricular ejection fraction was found to be in 2010 on 2D echo in Dr. Tiwari's office is 50% to 55%, but prior to that on cardiac cath was left ventricular ejection fraction was 20%. 3. Poorly controlled hypertension. 4. Recent discharge for toe amputation from osteomyelitis. 5. Insulin-dependent diabetes mellitus. 6. History of peripheral vascular disease, previous angioplasty. 7. Chronic anemia. 8. Morbid obesity. PLAN 1. Cardiology consult to assist with evaluation and management. 2. The patient is on IV Lasix 40 mg p.o. every 8 hours. Strict intake and output and daily weights. 3. Dr. Wills with pulmonology has seen the patient and feels it is more CHF rather than any pneumonia or exacerbation of bronchitis. He is instructed to be on a BiPAP at night. Also DuoNeb. 4. Dr. Ramos after exam and evaluation wants to stop his amlodipine and start an BECCA inhibitor for blood pressure control. His amlodipine may be contributing to his lower extremity edema besides congestive heart failure. We will monitor his renal function closely. Strict intake and output and daily weights. 5. Obtain a 2D echo to re-evaluate his LV function and valves. According to the patient, he does follow with Dr. Cortez, but it has been a year or two since he has seen him. 6. The patient most likely will need re-evaluation of his ischemic heart disease. His last study was done in 2010 where he had heart catheterization finding nonobstructive CAD, but with his multiple comorbidities, we need to re-evaluate by possibly some type of stress test. 7. Obtain a fasting lipid profile and TSH and evaluate. 8. Further recommendations pending per Dr. Ramos. Thank you very much for allowing us to assist in the care. Dictated by... Johan BustamanteP.RAlinN. for Unit #: [id number] #: [id number] Patient: KRISTAL MALAVE,Kelly Uribe/tate TD: 05/07/2016 01:13 JOB #: [id number] CONSULTATION REPORT X Kellie Acevedo APRN CONSULTATION REPORT
--- NOTE | ~2016-05-05 | BMI ---
[facility] Nutrition Therapy DATE: 05/08/16 Patient: LUIS E GIRALDO Physician: DARRIN Address: [address] [place] [address] Room/Bed: [address] [place] [address], Zip: [place] [address] Admit Date: 05/05/16 Date of : [birth year] Height: 5 11 Weight: 324 147.2 HIGH BMI NOTE: ANTHROPOMETRICS: HT: 71" WT: 147.2 KG BMI: 45.3 INTERVENTION: 1. CONSISTENT CARBOHYDRATE DIET + FLUID RESTRICTION PER MD RECOMMENDATIONS: 1. ADD HEART HEALTHY DIET RESTRICTION IN ORDER TO PROMOTE GRADUAL WEIGHT LOSS. Respectfully, HARRIET BARBOSA RD, LD [employer] [facility] [place] [facility] cc: client file
--- NOTE | ~2016-05-05 | CR72 ---
[facility] A Service of [facility] RADIOLOGY TEXT RESULTS PATIENT: LUIS E GIRALDO SR LOCATION: CEDOF : 60 UNIT #: [id number] AGE: [address]: Estrella Calvert MD SEX: M ORDER DR: [id number] [facility] [address]. [place], [place] [address] [id number] I MR#: [id number] Acc #: [id number] NAME: LUIS E GIRALDO SR : 1960 SEX: M STUDY DATE/TIME: 05/05/2016 6:35 UNIT: CEDOF ROOM: 24844 STUDY DESCRIPTION: CR Chest Single View Portable Attending Physician: Estrella Calvert M.D. Ordering Physician: Adilson Corona M.D. Primary Care Physician: Abisai Pennington M.D. MEDICAL IMAGING REPORT This report is preliminary unless electronic signature is present EXAM Chest x-ray, single view portable. DATE OF EXAM 05/05/2016 HISTORY Dyspnea for 1 day. History of hypertension. COMMENT Single frontal portable view of the chest timed 06:35 on 05/05/2016. COMPARISON Compared to 04/22/2016. FINDINGS There is borderline heart size and the development of central vascular congestion and fairly extensive interstitial edema worse centrally. There is also patchy airspace disease most apparent left base laterally. Please correlate for clinical evidence of volume overload. No pneumothorax. No definite pleural fluid. PICC line terminates mid SVC level. IMPRESSION Findings are most likely due to worsening volume status with increasing vascular congestion and interstitial edema and development of some patchy pulmonary edema. Please correlate clinically and exclude concern for aspiration or pneumonia. Typical or atypical infectious disease could also result in this pattern. PICC line terminates mid SVC level. Dictated by... Nilda Urrutia M.D. [facility] A Service of [facility] RADIOLOGY TEXT RESULTS PATIENT: LUIS E GIRALDO SR LOCATION: CEDOF : 60 UNIT #: [id number] AGE: [address]: Estrella Calvert MD SEX: M ORDER DR: THIS IS AN ELECTRONICALLY VERIFIED REPORT Nilda Urrutia M.D. at 05/06/2016 6:19 AM JITENDRA/abdiel TD: 05/05/2016 19:31 JOB #: [id number] MEDICAL IMAGING REPORT COPY
--- NOTE | ~2016-05-05 | HP ---
Unit #: [id number] #: [id number] Patient: LUIS E GIRALDO SR [id number] [address] [place], [place] [address] [id number] I MR#: [id number] NAME: LUIS E GIRALDO SR ROOM: 341 Age: 55 Sex: M Admission Date: 05/05/2016 : 1960 Attending Physician: Estrella Calvert M.D. Primary Care Physician: Abisai Pennington M.D. HISTORY AND PHYSICAL CHIEF COMPLAINT Shortness of breath. HISTORY OF PRESENT ILLNESS The patient is a 55-year-old, morbidly obese male who is very well known to me from multiple admission, most recent admission was two weeks ago. On 04/25/2016 when he was discharged by Dr. Robertson after getting I and D done and amputation done and was discharged one IV antibiotics. The patient went home, was doing well and then he started to have shortness of breath. He could not sleep. He was not getting better. It was difficult for him to sleep at night. He was choking. Did not complain of any chest pain. Does complain of some paroxysmal nocturnal dyspnea and also complains of leg swelling. He has been taking his latex, which is 40 mg once a day. The patient has been diagnosed with sleep apnea but he could not afford CPAP. He does not complain of fever, chills or rigors. No complaint of cough. No complaint of nausea, vomiting or diarrhea. PAST MEDICAL HISTORY History of insulin dependent diabetes mellitus, hypertension, hyperlipidemia, peripheral vascular disease, left lower extremity osteomyelitis, morbid obesity, hypertension. PAST SURGICAL HISTORY 1. Left big toe hallux amputation. 2. Ultrasound guided cannulation of the right common femoral artery, abdominal arteriogram with a balloon dilatation per vascular surgery. 3. Recent first metatarsal amputation. ALLERGIES Penicillin. SOCIAL HISTORY No current tobacco abuse, alcohol abuse, or drug abuse. FAMILY HISTORY Patient does have a family history of hypertension and diabetes. PHYSICAL EXAMINATION GENERAL: Patient is lying in bed, does not seem to be in any respiratory distress. He is on BiPAP and is being examined in the ER bed 16, morbidly obese. VITAL SIGNS: Blood pressure 146/62, respiratory rate 20, saturation 98%. HEENT: Head is normocephalic. NECK: Supple. Unit #: [id number] #: [id number] Patient: LUIS E GIRALDO SR CHEST: Fair air entry, decreased at the bases. Crackles are positive. CARDIOVASCULAR: S1 and S2 positive. Regular rhythm. ABDOMEN: Obese. EXTREMITIES: Left lower extremity dressing is present. Edema bilateral. ANCHORER: Awake, alert, and oriented x3. No focal neurological deficit. DIAGNOSTIC STUDIES LABORATORY DATA: Lactic acid 1.0. C reactive protein 1.1. BNP 400. Sodium 141, potassium 4.5, chloride 107, BUN 32, creatinine 1.4. WBC 11.0, hemoglobin 9.1, hematocrit 27.6, and platelet count of 271. ASSESSMENT Patient is being admitted to telemetry unit with: 1. Acute dyspnea and hypoxia. 2. Acute diastolic congestive heart failure. 3. Osteomyelitis of left foot. Recent toe amputation by Dr. Robertson on her IV antibiotics. 4. Insulin dependent diabetes mellitus. 5. Bilateral leg swelling. 6. Hypertension. 7. History of peripheral vascular disease. 8. Chronic anemia. 9. Morbid obesity. PLAN Admit to telemetry unit. Dr. Ramos has been consulted. IV Lasix has been started. Echocardiogram will be done. Labs will be reviewed tomorrow morning. Dr. Kaufman has been consulted. Strict I's and O's will be done. BiPAP as per his recommendation. DuoNeb continue q.i.d. Home medications have been reviewed and are adjusted. Plan of care has been discussed with patient at length. Dictated by Kelly Mon TD: 05/06/2016 15:56 JOB #: [id number] HISTORY AND PHYSICAL X Estrella Calvert MD X HISTORY AND PHYSICAL
--- NOTE | ~2016-05-05 | EKG ---
PATIENT: LUIS E GIRALDO UNIT #: [id number] Ventricular Rate: 99 BPM Atrial Rate: 99 BPM P-R Interval: 178 ms QRS Duration: 92 ms Q-T Interval: 334 ms QTC Calculation(Bezet): 428 ms P Gordon: 41 degrees Calculated R Gordon: 14 degrees Calculated T Gordon: 101 degrees Diagnosis Line: Normal sinus rhythm Diagnosis Line: Nonspecific T wave abnormality Diagnosis Line: Abnormal ECG Diagnosis Line: Diagnosis Line: Confirmed by LESLEY BEARD MD ([id number]) on Diagnosis Line: 05/08/2016 3:59:22 PM INTERPRETING MD: CHIRAG GONZALEZ
--- NOTE | ~2016-05-05 | CO ---
Unit #: [id number] #: [id number] Patient: LUIS E GIRALDO SR [id number] [address] [place], [place] [address] [id number] I MR#: [id number] NAME: LUIS E GIRALDO SR ROOM: 94689 Age: 55 Sex: M Admission Date: 05/05/2016 : 1960 Attending Physician: Estrella Calvert M.D. Primary Care Physician: Abisai Pennington M.D. Consultation Date: 05/05/2016 CONSULTATION REPORT REASON FOR CONSULT Shortness of breath. HISTORY OF PRESENT ILLNESS This is a very pleasant 55-year-old male with past medical history significant for obstructive sleep apnea, not on CPAP, and congestive heart failure who presented to the emergency room with respiratory distress and shortness of breath for the last few days. The patient stated that he had been in the hospital for almost 3 months, and he was complaining of progressive shortness of breath and choking at night. The patient was discharged home only a couple weeks ago. The patient stated that he is very compliant with his Lasix but not so much with diet. His lower extremities have been more swollen over the last 2 weeks. The patient was diagnosed with sleep apnea but he could not afford the CPAP. He denied any fever, chills or night sweats. No cough or chest pain. No nausea, vomiting or diarrhea. PAST MEDICAL HISTORY 1. Morbid obesity. 2. Obstructive sleep apnea. 3. Insulin-dependent diabetes. 4. Hypertension. 5. Hyperlipidemia. 6. Peripheral vascular disease. 7. Left lower extremity gangrene and osteomyelitis. PAST SURGICAL HISTORY 1. Left big toe hallux amputation. 2. Ultrasound-guided cannulation of the right common femoral artery, abdominal arteriogram with balloon dilation per vascular surgery. 3. Left first mid tarsal amputation, March 2016. HOME MEDICATIONS 1. Ambien. 2. Cubicin. 3. Hydralazine. 4. Lipitor. 5. Coreg. 6. Colace. 7. Furosemide. 8. Sliding scale insulin. 9. Nitrostat. 10. Milk of Magnesia. Unit #: [id number] #: [id number] Patient: LUIS E GIRALDO SR 11. Benadryl. 12. Morphine. 13. Percocet. 14. Pepcid. 15. Norvasc. 16. Aspirin. 17. Levemir. 18. [place]. ALLERGIES No known drug allergies. SOCIAL HISTORY The patient has no history of alcohol or drug abuse or smoking. FAMILY HISTORY Hypertension and diabetes. PHYSICAL EXAMINATION GENERAL: The patient is morbidly obese. VITAL SIGNS: Blood pressure 146/62, respiratory rate 20, O2 saturation 98% on room air. HEENT: Atraumatic, normocephalic. PERRLA, EOMI. NECK: Supple. No JVD. No lymphadenopathy. CHEST: Decreased breath sounds bilaterally with (1) . HEART: S1, S2. No murmur, gallops or rubs. ABDOMEN: Soft, nontender. Bowel sounds positive. No hepatosplenomegaly. EXTREMITIES: He has +2 edema with a wound in the left foot. DIAGNOSTIC STUDIES IMAGING: Chest x-ray is consistent with pulmonary edema. ASSESSMENT 1. Acute on chronic diastolic congestive heart failure exacerbation. 2. Osteomyelitis. 3. Morbid obesity. 4. Obstructive sleep apnea, untreated. 5. Diabetes. 6. Hypertension. PLAN 1. The patient will be admitted to monitored med/surg. 2. Will place him on BiPAP at night. 3. IV Lasix q.8 hours with strict input and output. 4. Echocardiogram to be obtained. 5. Continue antibiotics from outpatient setting for osteomyelitis. 6. DVT prophylaxis. Dictated by... Annalise Boss M.D. EA/nick TD: 05/06/2016 10:19 JOB #: [id number] Unit #: [id number] #: [id number] Patient: KRISTAL MALAVE,LUIS E Jj CONSULTATION REPORT X ANNALISE HO MD CONSULTATION REPORT
--- NOTE | ~2016-05-05 | US84 ---
[id number] [facility] [address] [place], [place] [address] [id number] I MR#: [id number] Acc #: [id number] NAME: LUIS E GIRALDO SR : 1960 SEX: M STUDY DATE/TIME: 05/07/2016 21:17 UNIT: C3A PCU ROOM: 341 STUDY DESCRIPTION: US LE Veins Complete Baldomero Stdy Attending Physician: Estrella Calvert M.D. Ordering Physician: Estrella Calvert M.D. Primary Care Physician: Abisai Pennington M.D. MEDICAL IMAGING REPORT This report is preliminary unless electronic signature is present EXAM Bilateral lower extremity Doppler venous ultrasound. DATE 05/07/2016 HISTORY Bilateral lower extremity swelling getting progressively worse since surgery to remove left digit January 2016. The patient states he went into congestive heart failure 2 nights ago. COMPARISON Left lower extremity Doppler venous ultrasound 01/20/2016. TECHNIQUE Venous ultrasound examination of both lower extremities was performed using grayscale, spectral Doppler and color flow Doppler imaging. FINDINGS The examination is negative. There is no evidence of deep venous thrombus from the groin to the lower calf bilaterally. Visualized greater saphenous veins are also patent. IMPRESSION Negative examination. No evidence of lower extremity deep venous thrombosis. Dictated by... Alicia Jaramillo M.D. THIS IS AN ELECTRONICALLY VERIFIED REPORT Alicia Jaramillo M.D. at 05/08/2016 2:09 PM CARLOS/stefano TD: 05/08/2016 10:05 JOB #: [id number] MEDICAL IMAGING REPORT COPY
--- NOTE | ~2016-05-05 | DS ---
Unit #: [id number] #: [id number] Patient: LUIS E RALPH SR [id number] [address] [place], [place] [address] [id number] I MR#: [id number] NAME: LUIS E RALPH SR ROOM: 341 Age: 55 Sex: M Admission Date: 05/05/2016 : 1960 Discharge Date: 05/09/2016 Attending Physician: Estrella Calvert M.D. Primary Care Physician: Abisai Pennington M.D. DISCHARGE SUMMARY FINAL DIAGNOSES 1. Congestive heart failure with left ventricular ejection fraction of 30% to 35% per cardiac cath. With echocardiogram, ejection fraction was 45% to 50%. 2. Status post cardiac cath with coronary artery disease which shows mild left anterior descending 50%, obtuse marginal 50%, mid right coronary artery 50%. 3. Obstructive sleep apnea. 4. Episode of ventricular tachycardia during hospitalization. 5. Insulin dependent diabetes mellitus. 6. Hypertension. 7. Morbid obesity. 8. Peripheral arterial disease. 9. Cellulitis of the left foot, status post first metatarsal amputation with a medial foot wound. This was performed on the last admission which was on April 19, 2016. 10. Chronic anemia. DISCHARGE MEDICATIONS 1. Neurontin 600 mg three times a day. 2. Coreg 37.5 mg twice a day. 3. Discontinue Norvasc. 4. Furosemide 80 mg twice a day. 5. Lipitor 80 mg q. h.s. 6. Hydralazine 100 mg twice a day. 7. Zestril 5 mg daily. 8. Levemir 20 units subcu daily. 9. Ferrous sulfate 324 mg daily. 10. Aspirin 81 mg daily. 11. Prilosec 20 mg daily. 12. Nitroglycerin 0.4 sublingual p.r.n. 13. Continue antibiotics which is IV meropenem and Cubicin as per Dr. Robertson. CONSULTATION DURING HOSPITALIZATION 1. Dr. Robertson - Ortho services. 2. Dr. Ramos/Dr. Esteban - Cardiology services. 3. Dr. Boss/Dr. Kaufman - Pulmonary services. HOSPITAL COURSE Mr. Ralph was admitted to hospital with shortness of breath. The patient was diagnosed with possible diastolic congestive heart failure. Dr. Raoms and Dr. Esteban were consulted. Medications were adjusted. The patient was diagnosed with acute and chronic congestive heart failure and Unit #: [id number] #: [id number] Patient: KRISTAL MALAVE,LUIS E Jj diastolic congestive heart failure. The patient did have significant dyspnea. IV diuretics were done as per their recommendation. The patient had an episode of V-tach. Cardiac cath was recommended which was done by Dr. Ramos which shows coronary artery disease as above. The patient's medications have been adjusted as per their recommendation. The patient will follow up with Dr. Esteban on August 08, at 11:45 a.m. He will need echocardiogram at that time for left ventricular ejection fraction as there is a controversy on transthoracic echocardiogram, ejection fraction is 45% to 50%, and during cardiac cath it was noted that ejection fraction is 30% to 35%. The patient's lisinopril has been decreased in dose because of renal failure. The patient will have a cardiac rehab consult. Dr. Boss was also consulted and was on BiPAP at nighttime in the beginning. Nocturnal pulse ox has been done which shows that he does drop his oxygen during nighttime. Home oxygen is being arranged before he goes home. Dr. Robertson was consulted. The patient is on IV antibiotics from outpatient setting. As per Dr. Robertson, continue daily dressing changes with 1/4 strength Dakin's. Continue IV Merrem and daptomycin. The patient will follow up with Dr. Robertson as an outpatient. VITAL SIGNS on discharge - blood pressure is 132/52, respiratory rate 22, pulse is 70, temperature 98.1. HEAD is normocephalic. CHEST - good breath sounds. CVS - S1, S2 positive. Regular rhythm. ABDOMEN - bowel sounds are positive. EXTREMITIES - edema is present bilateral. Left foot dressing is present. DISCHARGE INSTRUCTIONS 1. The patient is being discharged in stable condition. 2. Follow up with Dr. Esteban on August 08, at 11:45 a.m. with echo for left ventricular ejection fraction. 3. Medications are being adjusted. 4. BMP to be done in one week. 5. Patient needs to follow up with Dr. Sharma in four to six weeks. 6. Follow up with primary care provider in one week. LAB WORKUP ON DISCHARGE Sodium 141, potassium 4.6, BUN 38, creatinine 1.5, WBC 8.4, hemoglobin 8.0, hematocrit 24.3, and platelet count of 203. Dictated by... Kelly Mon TD: 05/10/2016 05:56 JOB #: [id number] Unit #: [id number] #: [id number] Patient: LUIS E RALPH SR DISCHARGE SUMMARY X Estrella Calvert MD X DISCHARGE SUMMARY
[2016-05-05 06:36] LABS: ARTERIAL BLD GAS O2 SATURATION 97.7 % (90.0-100.0); ARTERIAL BLOOD GAS CARBOXY HB 1.2 %sat (0.0-9.0); ARTERIAL BLOOD GAS HCO3 25.6 mmol/L; ARTERIAL BLOOD GAS MET HB 1.2 %sat (0.0-2.0); ARTERIAL BLOOD GAS PCO2 42.4 mmHg (35.0-45.0)
[2016-05-05 06:37] LABS: ARTERIAL BLOOD GAS ALLEN TEST NORMAL; ARTERIAL BLOOD GAS ART SITE LEFT RADIAL; ARTERIAL BLOOD GAS DELIVERY BIPAP; ARTERIAL DRAW? YES
[2016-05-05 06:37] LABS: BASOPHIL# 0.2 X10e3 (0-0.3); BASOPHIL% 1.5 % (0-2.5); DIFF IND NO; EOSINOPHIL# 1.5 X10e3 (0-0.7); EOSINOPHIL% 13.4 % (0.0-7.0); HEMATOCRIT 27.6 % (38.0-50.0); HEMOGLOBIN 9.1 gm/dL (13.0-16.0); LYMPHOCYTE# 2.9 X10e3 (1.0-3.5); LYMPHOCYTE% 26.1 % (17.0-45.0); MEAN CELL VOLUME 86.8 FL (83-96); MEAN CORPUSCULAR HEMOGLOBIN 28.7 PG (28-34); MEAN CORPUSCULAR HGB CONC 33.1 g/dL (30-36); MEAN PLATELET VOLUME 7.7 FL (6.5-11.5); MONOCYTE# 0.7 X10e3 (0-1.0); NEUTROPHIL# 5.8 X10e3 (1.5-7.1); PLATELET COUNT 271 X10e3 (140-420); RED BLOOD COUNT 3.18 X10e (3.90-5.60); RED CELL DISTRIBUTION WIDTH 16.7 % (11.0-15.5)
[2016-05-05 06:43] LABS: POC - CKMB <1.0 ng/mL (0.0-7.9); POC - TROPONIN <0.05 ng/mL (<=0.05)
[~2016-05-05 07:08] MED LIST changes: +AMLODIPINE BESY10 MG PO; +BANOPHEN25 M1 PO; +CUBICIN IV; +DOCUSATE SODIU100 MG PO; +FAMOTIDINE20 M1 PO; +FUROSEMIDE40 MG PO; +HYDRALAZINE HCL50 MG PO; +IRON325 ( 651 PO; +MERREM500 MG INJ; +MILK OF MAGNESIA PO; +NEURONTIN800 MG PO; +NOVOLOG100 U/ML; +PERCOCET 5-3251 TAB PO; +PROMETHAZINE12.5 MG PO
[2016-05-05 07:11] LABS: ALBUMIN SERUM 2.9 g/dL (3.5-5.0); ALKALINE PHOSPHATASE 102 U/L (32-92); ALT (SGPT) 28 U/L (10-40); AST (SGOT) 25 U/L (10-42); BILIRUBIN, DIRECT <0.1 mg/dL (0.0-0.2); BILIRUBIN,INDIRECT 0.4 mg/dL (0.0-0.9); BILIRUBIN,TOTAL 0.5 mg/dL (0.2-2.0); BLOOD UREA NITROGEN 32 mg/dL (9-23); BUN/CREATININE RATIO 22.85; CALCIUM SERUM 8.2 mg/dL (8.4-10.2); CARBON DIOXIDE 26 mmol/L (22-31); CHLORIDE 107 mmol/L (100-111); CREATININE SERUM 1.4 mg/dL (0.6-1.4); GLOM FILT RATE Estimated 55.9 mL/min (>60); GLUCOSE FASTING 189 mg/dL (70-110); POTASSIUM 4.5 mmol/L (3.5-5.1); PROTEIN TOTAL SERUM 6.1 g/dL (6.0-8.3); SODIUM 141 mmol/L (135-145)
[2016-05-05 09:46] LABS: POC - CKMB <1.0 ng/mL (0.0-7.9); POC - TROPONIN <0.05 ng/mL (<=0.05)
[2016-05-06 04:04] LABS: BASOPHIL# 0.1 X10e3 (0-0.3); BASOPHIL% 1.3 % (0-2.5); EOSINOPHIL# 0.9 X10e3 (0-0.7); HEMATOCRIT 23.9 % (38.0-50.0); LYMPHOCYTE# 3.1 X10e3 (1.0-3.5); LYMPHOCYTE% 39.7 % (17.0-45.0); MEAN CELL VOLUME 87.3 FL (83-96); MEAN CORPUSCULAR HEMOGLOBIN 29.2 PG (28-34); MEAN CORPUSCULAR HGB CONC 33.5 g/dL (30-36); MEAN PLATELET VOLUME 8.1 FL (6.5-11.5); MONOCYTE# 0.5 X10e3 (0-1.0); MONOCYTE% 6.2 % (3.0-12.0); NEUTROPHIL# 3.3 X10e3 (1.5-7.1); NEUTROPHIL% 41.8 % (40-75); PLATELET COUNT 199 X10e3 (140-420); RED BLOOD COUNT 2.73 X10e (3.90-5.60); RED CELL DISTRIBUTION WIDTH 16.6 % (11.0-15.5); WHITE BLOOD COUNT 7.9 X10e3 (4.0-10.5)
[2016-05-06 04:09] LABS: DIFF IND NO
[2016-05-06 04:27] LABS: BLOOD UREA NITROGEN 33 mg/dL (9-23); BUN/CREATININE RATIO 25.38; CALCIUM SERUM 8.1 mg/dL (8.4-10.2); CARBON DIOXIDE 28 mmol/L (22-31); CHLORIDE 107 mmol/L (100-111); CREATININE SERUM 1.3 mg/dL (0.6-1.4); GLOM FILT RATE Estimated ABOVE60 mL/min (>60); GLUCOSE FASTING 147 mg/dL (70-110); MAGNESIUM 1.8 mg/dL (1.6-3.0); PHOSPHOROUS 4.6 mg/dL (2.5-4.6); POTASSIUM 4.1 mmol/L (3.5-5.1); SODIUM 140 mmol/L (135-145)
[2016-05-07 10:13] LABS: HEMATOCRIT 23.9 % (38.0-50.0); MEAN CELL VOLUME 87.5 FL (83-96); MEAN CORPUSCULAR HEMOGLOBIN 29.3 PG (28-34); MEAN CORPUSCULAR HGB CONC 33.5 g/dL (30-36); MEAN PLATELET VOLUME 7.9 FL (6.5-11.5); RED BLOOD COUNT 2.73 X10e (3.90-5.60); RED CELL DISTRIBUTION WIDTH 16.6 % (11.0-15.5); WHITE BLOOD COUNT 7.2 X10e3 (4.0-10.5)
[2016-05-07 10:35] LABS: BUN/CREATININE RATIO 27.14; CALCIUM SERUM 8.2 mg/dL (8.4-10.2); CREATININE SERUM 1.4 mg/dL (0.6-1.4); GLOM FILT RATE Estimated 55.9 mL/min (>60); MAGNESIUM 1.8 mg/dL (1.6-3.0); POTASSIUM 4.8 mmol/L (3.5-5.1)
[2016-05-08 05:52] LABS: HEMATOCRIT 24.3 % (38.0-50.0); MEAN CELL VOLUME 86.7 FL (83-96); MEAN CORPUSCULAR HEMOGLOBIN 28.5 PG (28-34); MEAN CORPUSCULAR HGB CONC 32.8 g/dL (30-36); MEAN PLATELET VOLUME 8.1 FL (6.5-11.5); RED BLOOD COUNT 2.8 X10e (3.90-5.60); WHITE BLOOD COUNT 8.4 X10e3 (4.0-10.5)
[2016-05-08 06:35] LABS: PARTIAL THROMBOPLASTIN TIME 26.4 SECONDS (23.5-31.3)
[2016-05-08 06:37] LABS: BUN/CREATININE RATIO 25.33; CALCIUM SERUM 8.4 mg/dL (8.4-10.2); CREATININE SERUM 1.5 mg/dL (0.6-1.4); GLOM FILT RATE Estimated 51.6 mL/min (>60); MAGNESIUM 2.1 mg/dL (1.6-3.0); POTASSIUM 4.7 mmol/L (3.5-5.1)
[2016-05-09 07:33] LABS: CREATININE SERUM 1.5 mg/dL (0.6-1.4); GLOM FILT RATE Estimated 51.6 mL/min (>60)
[2016-05-09] MEDS ORDERED: LISINOPRIL5 MG PO (11:53)
== END 2016-05-09 12:15 | disposition home or self-care (01) | DRG 286 ==
LOC: CED 07:08 → CEDOF 08:00 → C3A PCU 05-06 15:56
PROVIDERS: Emergency Medicine; Internal Medicine Cardiovascular Disease; Physician Assistant Medical
PROC: B24BYZZ Ultrasonography of Heart with Aorta using Other Contrast (ICD-10-PCS; principal; 2016-05-06)
PROC: 4A023N8 Measurement of Cardiac Sampling and Pressure, Bilateral, Percutaneous Approach (ICD-10-PCS; 2016-05-08)
PROC: B211YZZ Fluoroscopy of Multiple Coronary Arteries using Other Contrast (ICD-10-PCS; 2016-05-08)
PROC: B215YZZ Fluoroscopy of Left Heart using Other Contrast (ICD-10-PCS; 2016-05-08)
DX: I11.0 Hypertensive heart disease with heart failure (principal); J96.00 Acute respiratory failure, unspecified whether with hypoxia or hypercapnia; I47.2 Ventricular tachycardia; M86.8X7 Other osteomyelitis, ankle and foot; I27.2 Other secondary pulmonary hypertension; I42.0 Dilated cardiomyopathy; Z68.41 Body mass index [BMI] 40.0-44.9, adult; E11.9 Type 2 diabetes mellitus without complications; E78.5 Hyperlipidemia, unspecified; I73.9 Peripheral vascular disease, unspecified; E66.01 Morbid (severe) obesity due to excess calories; Z89.412 Acquired absence of left great toe; Z88.0 Allergy status to penicillin; Z79.4 Long term (current) use of insulin; D64.89 Other specified anemias; Z79.82 Long term (current) use of aspirin; Z87.891 Personal history of nicotine dependence; G47.33 Obstructive sleep apnea (adult) (pediatric); I50.33 Acute on chronic diastolic (congestive) heart failure; I25.10 Atherosclerotic heart disease of native coronary artery without angina pectoris; Z95.1 Presence of aortocoronary bypass graft
CPT/HCPCS: 36600; 71010; 80048; 80076; 82553; 82565; 82803; 82810; 82947; 83605; 83735; 83880; 84100; 84443; 84484; 85025; 85027; 85610; 85730; 87040; 93005; 93306; 93970; 94640; 94660; 94760; 96374; 99291; C1769; C1887; J1644; J1650; J1815; J1940; J2185; J2250; J3010; J3475

== ENCOUNTER 2016-05-22 19:02 | Inpatient (IN) | payer MEDICARE, OTHER ==
--- NOTE | ~2016-05-22 | EKG ---
PATIENT: LUIS E GIRALDO UNIT #: [id number] Ventricular Rate: 81 BPM Atrial Rate: 81 BPM P-R Interval: 164 ms QRS Duration: 96 ms Q-T Interval: 352 ms QTC Calculation(Bezet): 408 ms P [place]: 27 degrees Calculated R [place]: 31 degrees Calculated T [place]: 104 degrees Diagnosis Line: Normal sinus rhythm Diagnosis Line: Nonspecific T wave abnormality Diagnosis Line: Borderline ECG Diagnosis Line: No previous ECGs available Diagnosis Line: Confirmed by SIMONE SOUZA MD ([id number]) on 05/24/2016 Diagnosis Line: 9:16:03 AM INTERPRETING MD: LIBBY GONZALEZ
--- NOTE | ~2016-05-22 | CO ---
Unit #: [id number] #: [id number] Patient: LUIS E GIRALDO SR [id number] [address] [place], [place] [address] [id number] MR#: [id number] NAME: LUIS E GIRALDO SR ROOM: 549 Age: 55 Sex: M Admission Date: 05/22/2016 : 1960 Attending Physician: Estrella Calvert M.D. Primary Care Physician: Abisai Pennington M.D. Consultation Date: 05/25/2016 CONSULTATION REPORT The patient was admitted to Dr. Calvert. REASON FOR CONSULTATION Antibiotic management. HISTORY OF PRESENT ILLNESS This is a 55-year-old male that is known to our service and will see as a brief followup note. The patient has a history of left foot infection, osteomyelitis status post OR in April that grew Streptococcus milleri and returned for dehiscence of his wound in late April, found to have Klebsiella and eggerthella. The patient was continued on daptomycin and meropenem was added at that time. The patient's daptomycin was to be completed at the end of April and his meropenem was supposed to continue until June 04, 2016. The patient has since been admitted with edema, fluid overload and renal insufficiency followed by the nephrology team. The patient was continued on daptomycin and meropenem here, but patient reports allergic reaction to the meropenem while he was in the hospital with some itching. The patient reports he did not experience this at his house. PHYSICAL EXAMINATION VITAL SIGNS: Temperature 98.6 with no elevated temperature, pulse is 78, blood pressure is 150/64, respiratory rate is 18. GENERAL: This no apparent distress male was resting in the bed comfortably. HEENT: His pupils were equal. NECK: His neck was supple. CARDIOVASCULAR: S1, S2. Regular rate and rhythm. PULMONARY: Diminished throughout. ABDOMEN: Positive bowel sounds. Soft and obese. EXTREMITIES: Positive edema noted in all four extremities. PICC line is in place without any evidence of erythema or cellulitis. Left foot great toe amputation site shows some healing wounds with no cellulitis, 100% granulation tissue, and no evidence of cellulitis. DIAGNOSTIC STUDIES LABORATORY: BUN 34, creatinine 1.6, sodium 139, potassium 3.9, chloride 105, CO2 of 28. CRP is 2.5; however, on May 14 this was 0.5 and has been trending down. WBC 7.9, hemoglobin 7.8, hematocrit 24, platelets 228,000. Sed rate of 45. Urinalysis is currently pending. Urine culture is pending. IMAGING: Ultrasound of the kidneys show normal bilateral kidneys with no fluid collection, cystic mass, or lesion. No renal stone noted or Unit #: [id number] #: [id number] Patient: KRISTAL MALAVE,LUIS E hare. IMPRESSION This is a 55-year-old male known to our service with left foot infection complicated by dehiscence and polymicrobial infection. The patient completed his daptomycin therapy and was maintained on meropenem until June 04, 2016. The patient was admitted due to fluid overload and acute renal insufficiency followed by nephrology. While here, he was restarted on his antibiotic therapy but was reporting some type of allergic reaction that is unclear to me at this time but he did say he did have some itching. The patient does not appear to be itching at this time but there is some scratch chan noted on his skin. At this time, patient only had approximately one week left of antibiotic therapy. His wound appears to be healing without any evidence of acute infection at this time. His CRP and sed rate have been trending down nicely and suspect that elevation at this time may be related to his acute inflammatory process or reactive process due to possibility reactive to the meropenem versus what is going on with his kidneys. At this time, would recommend to continue local wound care. Dr. Robertson has been following along with this patient and feeling his wound is healing nicely too and there is no intervention needed at this time. Will recommend to hold all antibiotics and continue to follow patient. This case will be discussed with Dr. Javid Busby who will evaluate this patient today. Thank you for allowing us to participate in the care of this patient. Further recommendations to follow pending patient's clinical course. Dictated by... Narda Boo A.P.R.N. for Kelly Garcia/renetta TD: 05/25/2016 10:39 JOB #: [id number] CONSULTATION REPORT Page 1 of 1 X X CONSULTATION REPORT
--- NOTE | ~2016-05-22 | CO ---
Unit #: [id number] #: [id number] Patient: LUIS E RALPH SR [id number] [address] [place], [place] [address] [id number] MR#: [id number] NAME: LUIS E RALPH SR ROOM: [facility] Age: 55 Sex: M Admission Date: 05/22/2016 : 1960 Attending Physician: Estrella Calvert M.D. Primary Care Physician: Abisai Penningotn M.D. Consultation Date: 05/23/2016 CONSULTATION REPORT REASON FOR CONSULT Renal insufficiency, fluid overload. Thank you very much for having us see this patient in consultation. Mr. Luis E Ralph is a 55-year-old male with a history of diabetes mellitus since at least 2009 although with history of peripheral neuropathy, history of hypertension, who I initially saw the patient back in March where he presented to the emergency room with acute renal failure, hyperkalemia. At that time, he was status post angioplasty of his lower extremity due to a wound on his foot. He also was placed on Bactrim. He had to undergo emergent hemodialysis in March due to severe hyperkalemia. The patient was noted to improve his renal function and his potassium. He was discharged. Creatinine was 2.2 and his potassium was 5.0. That was in early April. He presented back to the hospital in mid April with problems with his wound. He was switched over on antibiotics and was discharged home, which I believe he was on meropenem and Cubicin at that time. He re-presented in early May of this year with increased shortness of breath. He was diuresed some and underwent a heart catheterization. He was noted to have an EF around 30% to 35% although I did not see him during that hospitalization. When he was discharged home on the 09 of May his creatinine was 1.5. Over the last several months he had, in March, had a urine protein and creatinine ratio around 3 g and it was felt that he possibly had diabetic nephropathy underlying his acute renal failure. He had a normal C3 and C4 and a negative SPEP and a negative Hep-C at that time. He also was noted to have a negative renal ultrasound in March. He presented last night with worsening shortness of breath with increased swelling. He was admitted. Creatinine was 1.3 and up to 1.6 now. Because of this, I was asked to see the patient. He denies any chest pain, just mainly increasing shortness of breath and increased swelling. Denies any nonsteroidal use. PAST MEDICAL HISTORY 1. History of atherosclerotic coronary artery disease, status post cath in May of this year with medical management. 2. History of EF 30% to 35%. 3. History of V-tach. 4. History of hypertension. 5. History of peripheral neuropathy. 6. History of diabetes mellitus since 2009. 7. History of peripheral vascular disease, status post toe amputation on the left foot and begun on antibiotics of Cubicin and meropenem at home. 8. History of obstructive sleep apnea. Unit #: [id number] #: [id number] Patient: LUIS E RALPH SR 9. History of anemia. SOCIAL HISTORY He is a previous smoker, none now. . No alcohol. ALLERGIES Include penicillin. FAMILY HISTORY Negative for kidney disease. MEDICATIONS His medicines at home include: 1. Neurontin 600 mg t.i.d. 2. Coreg 37.5 mg b.i.d. 3. Lasix 80 mg b.i.d. 4. Lipitor 80 mg a day. 5. Hydralazine 100 mg b.i.d. 6. Zestril 5 mg a day. 7. Insulin. 8. Aspirin. 9. Questionable Prilosec. Here, his Prilosec has been stopped. Zestril has been stopped. He was put on Pepcid as well as added Bumex 1 mg IV q.8 and his Lasix was on hold. REVIEW OF SYSTEMS He denies any fevers. He does have chills. No visual problems, sinus problems, cough, hemoptysis, sore throat, difficulty swallowing, neck pain, neck stiffness. No chest pain, chest tenderness, palpitations. He does have increased shortness of breath. He has had increased abdominal swelling, increased lower extremity swelling. He denies any urinary symptoms, starting, stopping or burning. Denies any recent seizures or strokes. His says his wound is healing on his left foot. PHYSICAL EXAMINATION GENERAL: He is alert and oriented. VITAL SIGNS: Temperature is 98.2, pulse 78-87, blood pressure 101-173/40s-109. It was 133/61 last checked. HEENT: Normocephalic, atraumatic. Pupils are equal, round, reactive to light. Extraocular muscles are intact. Hearing appears to be normal. Mouth is clear. No erythema, no exudate. NECK: Supple. No JVD, no adenopathy. CARDIAC: He has a regular rhythm without a rub. No S3 or S4. LUNGS: Decreased breath sounds at the bases. Upper lungs are clear. ABDOMEN: Obese. Bowel sounds positive. Nontender, soft. Positive body edema. EXTREMITIES: He has 2 to 3+ lower extremity edema. His left foot is bandaged. SKIN: He has some areas that look like some cutaneous tinea on his legs. He also has some scabbing from scratching. : Deferred. DIAGNOSTIC STUDIES LABORATORY DATA: Laboratory data this morning showed a sodium of 140, potassium 4.3, chloride is 107, bicarb is 29, BUN of 32, creatinine of 1.6, glucose of 143, calcium 7.8, magnesium 1.8, albumin is 2.8. BNP is only 371. TSH of 2.91. Hemoglobin is 9.1. White count 10,500, platelets Unit #: [id number] #: [id number] Patient: KRISTAL MALAVE,LUIS E Jj 239,000. His urinalysis in April 2016, showed 3+ protein, 50-100 RBCs. His protein/creatinine ratio at that time was 3.25. In March of this year he had a negative SPEP, normal C3 and C4 and a negative Hep-C. His renal ultrasound on March 30, 2016, showed right kidney was 11.4 cm, the left 14.4 cm. ASSESSMENT AND PLAN 1. Acute kidney injury: This is a gentleman with increasing again. Certainly, initially, I felt of course his acute renal failure was contrast and Bactrim which did improve although not fully and then he had some near nephrotic range proteinuria and potentially related to diabetes versus other. Now he presents with a lot worsening swelling. I would like to recheck urine protein to creatinine ratio. The patient could have still underlying diabetes as the cause of his proteinuria and probable nephrotic syndrome although it also could be FSGS versus other. I would like to repeat some serology tests as well as check an DANIEL, check an ANCA, repeat C3, C4, check an anti-GBM, check CPK, repeat a renal ultrasound. I would like to change his Bumex to 2 mg IV q.4 hours, try to actively diurese him. Recheck a UA culture and sensitivity again. A urine protein/creatinine ratio and a urine eosinophils are pending. Depending upon what all this shows, depending on what further workup and treatment. It would certainly be hard to do a kidney biopsy on this gentleman due to his size. Again, he potentially could have a nephrotic syndrome related to diabetes versus FSGS versus other. 2. Hypertension: Will increase his hydralazine and increase his Bumex. Hold his BECCA inhibitor for now although certainly an BECCA or ARB would be of benefit for him with the proteinuria, renal insufficiency as well as diabetes and once his renal function improves with diuresis, will restart a low dose BECCA. Although he has a history of hyperkalemia in the past, we have to very careful. 3. History of atherosclerotic coronary artery disease with decreased EF again with increased volume on exam, questionably related to cardiac versus nephrotic syndrome. 4. Diabetes mellitus. 5. History of cellulitis of left foot, status post partial amputation: Continue his antibiotics. Would continue to avoid vancomycin and aminoglycosides if possible. Dictated by... Kanu Sharma M.D. EMILIANA/zurdo TD: 05/24/2016 12:33 JOB #: [id number] Unit #: [id number] #: [id number] Patient: KRISTAL MALAVE,LUIS E Parviz CONSULTATION REPORT Page 1 of 1 X Aracelis Sharma MD X CONSULTATION REPORT
--- NOTE | ~2016-05-22 | DS ---
Unit #: [id number] #: [id number] Patient: LUIS E GIRALDO SR [id number] [address] [place], [place] [address] [id number] MR#: [id number] NAME: LUIS E GIRALDO SR ROOM: [facility] Age: 55 Sex: M Admission Date: 05/22/2016 : 1960 Discharge Date: 05/28/2016 Attending Physician: Estrella Calvert M.D. Primary Care Physician: Abisai Pennington M.D. DISCHARGE SUMMARY CONSULTATION DURING HOSPITALIZATION 1. Dr. Sharma from Renal Services. 2. Dr. Ramos from Cardiology Services. 3. Infectious Disease, Dr. Busby. 4. Dr. Robertson from Orthopedic surgery. FINAL DIAGNOSES 1. Anasarca. 2. Acute on chronic kidney disease. 3. Proteinuria. 4. Congestive heart failure with ejection fraction of 45% to 50% per cardiac cath. 5. 3-vessel coronary artery disease. 6. Automatic implantable cardioverter-defibrillator. 7. Left foot infection, completed antibiotics. 8. Insulin-dependent diabetes mellitus. 9. Chronic anemia. 10. Skin rash, treatment as per real time operator, possible Merrem related. 11. Hypertension. 12. Peripheral vascular disease. 13. Morbid obesity. 14. Left foot cellulitis and wound. DISCHARGE MEDICATIONS Prinivil 5 mg p.o. daily; nitroglycerin 0.4 mg sublingual p.r.n. for chest pain; Imdur ER 30 mg p.o. daily, we are going to confirm this medication with Cardiology before discharge; omeprazole 20 mg daily; aspirin 81 mg daily; ferrous sulfate 324 mg daily; Levemir 20 units subcu at bedtime; Neurontin 200 mg p.o. b.i.d. (please notice that this dose of Neurontin has been decreased because Neurontin can cause swelling and that could be contributing to some of his bilateral leg swelling); Tylenol 650 q.6 p.r.n.; Medrol Dosepak; Lasix 160 mg p.o. b.i.d. (please note, the patient's dose of Lasix has been increased); hydralazine 100 mg t.i.d.; Lipitor 80 mg daily; Benadryl 25 mg q.4 p.r.n. for itching. DIAGNOSTIC STUDIES LABORATORY RESULTS: Lab workup on discharge; sodium 142, potassium 4.2, chloride 102, BUN 37, creatinine 1.8, calcium 8.7, alkaline phosphatase 98, albumin 2.8. WBC 11.7, hemoglobin 9.4, hematocrit 28.6, and platelet count of 309. Urine culture was no growth. Blood in the stool was negative. DANIEL screen is positive. DANIEL titer 1:40. IMAGING STUDIES: Significant radiological studies done during Unit #: [id number] #: [id number] Patient: KRISTAL MALAVE,LUIS E Jj hospitalization; ultrasound of kidneys bilateral, which showed bilateral kidneys are morphologically normal. No perinephric fluid collection. No cystic or solid mass lesions. No renal calculi. Urinary bladder shows physiological volume of urine. No focal abnormality suggested. ADMITTING PHYSICIAN Dr. Anthony. DISCHARGING PHYSICIAN Estrella Calvert M.D. HOSPITAL COURSE Mr. Love is a 55-year-old male with multiple medical problems, who is known to our service from multiple admissions. Most recently, he was discharged on 05/09/2016 and returned back on 05/22/2016 for complaint of generalized swelling and shortness of breath, which was worsening. The patient was admitted to telemetry unit. Diagnosed with fluid overload, generalized anorexia, acute kidney injury on chronic kidney injury, and exacerbation of congestive heart failure. The patient was admitted to telemetry unit. The patient was started on dobutamine drip and fluid restriction was started. Medications were adjusted as per Dr. Ramos's recommendation. The patient does not have any chest pain and feeling much better, has reduced some swelling. The patient also had acute on chronic kidney disease. The patient was seen by Dr. Sharma. Again, medications have been adjusted. The patient also had nephrotic range of proteinuria. The patient's labs were repeated and was started on Bumex 2 mg q.4 hourly and continue to observe over the last few days. The patient's kidney functions have improved somewhat. The patient's Bumex has been discontinued and Lasix is being increased to 160 mg p.o. b.i.d. The patient has also been started on Prinivil again. The patient's Neurontin dose is being decreased to 200 mg b.i.d. as it has been suggested by Dr. Sharma that this could be contributing to some of his bilateral swelling to and edema. Left foot cellulitis. The patient has received IV antibiotic for long periods of time for the left foot infection. The patient has completed daptomycin therapy and was maintained on meropenem until 06/04/2016. The patient reported some skin allergic reaction. Only one week of antibiotic therapy was left. Dr. Ravi was consulted. His wound appears to be healing without any evidence of acute infection. His CRP and sedimentation rate have been trending down. It was recommended to continue local wound care as per Dr. Robertson and hold all the antibiotics, so the patient has been off the antibiotics. The patient will need to continue follow up with Dr. Robertson. He already has appointment with Dr. Robertson for wound care. The patient was also seen by real time operator for generalized urticarial eruption. It could be drug related. It could be related to Merrem. The patient was started on hydralazine and also Medrol Dosepak. The patient is doing better from that aspect and antibiotic has been discontinued. OBJECTIVE VITAL SIGNS: On discharge, blood pressure is 158/80, respiratory rate 18, pulse is 94, temperature 98.2. HEENT: Head is normocephalic. CHEST: Fair air entry. Decreased at the bases. CVS: S1, S2 positive. Unit #: [id number] #: [id number] Patient: LUIS E GIRALDO SR EXTREMITIES: Bilateral leg edema is present. DISCHARGE INSTRUCTIONS 1. Follow up primary care provider in [address] week[address] up Dr. Sharma as scheduled. 3. Follow up Dr. Ramos as scheduled. 4. The patient has an appointment with Dr. Robertson for wound care. 5. PICC line is being discontinued. 6. Fluid restriction has been advised to the patient. Diet counseling done. He does verbalize understanding. All questions answered to his satisfaction. Dictated by... Estrella Calvert M.D. SHANIQUE/tate TD: 05/29/2016 03:09 JOB #: [id number] DISCHARGE SUMMARY Page 1 of 1 X Estrella Calvert MD X DISCHARGE SUMMARY
--- NOTE | ~2016-05-22 | HP ---
Unit #: [id number] #: [id number] Patient: LUIS E RALPH SR [id number] [address] [place], [place] [address] [id number] MR#: [id number] NAME: LUIS E RALPH SR ROOM: 549 Age: 55 Sex: M Admission Date: 05/22/2016 : 1960 Attending Physician: Estrlela Calvert M.D. Primary Care Physician: Abisai Pennington M.D. HISTORY AND PHYSICAL ADMISSION DIAGNOSES 1. Anasarca. 2. Chronic kidney disease. 3. Questionable acute exacerbation of CHF. 4. Morbid obesity. 5. Peripheral vascular disease. 6. Left foot cellulitis status post metatarsal amputation, on IV antibiotics. 7. Anemia of chronic disease. 8. Hypertension. HISTORY OF PRESENT ILLNESS Mr. Ralph is a 55-year-old gentleman, well known to our service secondary to previous admissions. Most recently he was discharged from our service on May 09, 2016 when he was treated for congestive heart failure along with left foot cellulitis. He is status post metatarsale amputation, and he is still on antibiotics. He comes to the emergency room with complaints of increased generalized swelling. Also has had some episodes of shortness of air and dyspnea since then. He tells me that his dyspnea had improved. He denies any chest pain. Denies any headache or dizziness. Denies any fever, chills, nausea, vomiting or diarrhea. Denies any albuterol pain. REVIEW OF SYSTEMS A 12-point review of systems on this patient is basically negative except as above. PAST MEDICAL HISTORY Significant for history of insulin-dependent diabetes, hypertension, dyslipidemia, peripheral vascular disease, left lower extremity osteomyelitis with gangrene, morbid obesity and chronic kidney disease. PAST SURGICAL HISTORY Significant for left hallux amputation, metatarsal amputation most recently. Also, ultrasound-guided canalization of the right common femoral artery with balloon dilation. HOME MEDICATIONS Cubicin, gabapentin, Coreg, Lasix, Lipitor, hydralazine, lisinopril, Levemir, NovoLog, ferrous sulfate, Merrem, aspirin, omeprazole, Nitrostat. ALLERGIES Penicillin. Unit #: [id number] #: [id number] Patient: LUIS E RALPH SR SOCIAL HISTORY There is no current history of tobacco, alcohol or illicit drugs. FAMILY HISTORY Unremarkable. PHYSICAL EXAMINATION GENERAL: The patient is an obese 55-year-old gentleman in no acute distress. VITAL SIGNS: BP 123/56, heart rate 73, respirations 19, temperature 97.8. HEENT: Head is atraumatic. Pupils are equal, round and reactive to light and accommodation. Extraocular muscles are intact. Oropharynx is clear. NECK: Neck is supple. No masses. No JVD. No bruit. RESPIRATORY: Chest is diminished bilaterally. CARDIOVASCULAR: S1, S2. No murmurs. ABDOMEN: Abdomen is soft, obese, nontender, nondistended. EXTREMITIES: Lower extremities with some extensive 2+ pitting edema. Left foot in clean dressing. NEUROLOGIC: Patient grossly intact without any focal deficits. DIAGNOSTIC STUDIES LABORATORY: Chemistry significant for BUN 32, creatinine 1.6. White count 10.5, hemoglobin 9.1, hematocrit 27.1. ASSESSMENT 1. Generalized anasarca. 2. Acute kidney injury on chronic kidney disease. 3. Questionable acute exacerbation of CHF. 4. Morbid obesity. 5. Peripheral vascular disease. 6. Left foot cellulitis with osteomyelitis status post metatarsal amputation. Continue IV antibiotics. 7. Anemia of chronic disease. 8. Hypertension. 9. GI and DVT prophylaxis with Pepcid and heparin. PLAN Continue antibiotics. Continue IV diuretics per nephrology. Last time he was here he had a cardiac cath, which showed EF around 35% to 40%. Will check BNP and ask cardiology to evaluate for questionable acute exacerbation of heart failure. Dictated by Kelly Fuentes/nick TD: 05/24/2016 08:42 JOB #: [id number] Unit #: [id number] #: [id number] Patient: LUIS E RALPH SR HISTORY AND PHYSICAL Page 1 of 1 X Bishop Anthony MD HISTORY AND PHYSICAL
--- NOTE | ~2016-05-22 | BMI ---
[facility] Nutrition Therapy DATE: 05/23/16 Patient: LUIS E GIRALDO SR Physician: DARRIN Address: [address] [place] [address] Room/Bed: [address] [place] [address], Zip: [place] [address] Admit Date: 05/22/16 Date of : 60 Height: 5 10 Weight: 343 155.8 HIGH BMI NOTE: DX: 59 y/o male admitted for anasarca ANTHROPOMETRICS: Ht: 5'10" Wt: 155.9 kg (343#) BMI: 49.3 DIET: Consistent carb INTERVENTION: Consistent carb RECOMMENDATIONS: 1. Continue consistent carb diet to promote gradual weight loss towards healthy BMI RD will f/u per protocol. Respectfully, MINAL TIERNEY, Press Operator Porfirio Coker MS, RD, LD [facility] cc: client file
--- NOTE | ~2016-05-22 | US77 ---
[facility] A Service of [facility] RADIOLOGY TEXT RESULTS PATIENT: LUIS E GIRALDO SR LOCATION: [facility] 549-01 : [birth year] UNIT #: [id number] AGE: [address]: Estrella Calvert MD SEX: M ORDER DR: [id number] [facility] [address] [facility]. [place], [place] [address] [id number] MR#: [id number] Acc #: [id number] NAME: LUIS E GIRALDO SR : 1960 SEX: M STUDY DATE/TIME: 05/23/2016 17:28 UNIT: [facility] ROOM: [facility] STUDY DESCRIPTION: US Kidney Bilateral Complete Attending Physician: Estrella Calvert M.D. Ordering Physician: Kanu Sharma M.D. Primary Care Physician: Abisai Pennington M.D. MEDICAL IMAGING REPORT This report is preliminary unless electronic signature is present EXAM Bilateral renal ultrasound, 05/23/2016 HISTORY Acute renal failure. Diabetes, hypertension, BUN 32 creatinine 1.6 eGFR 47.9. FINDINGS Real-time ultrasonography bilateral kidneys performed. Comparison 03/30/2016. The visualized liver is unremarkable. The right kidney measures 13.54 cm in greatest length with no hydronephrosis or nephrolithiasis. No cystic or solid mass lesion and no perinephric fluid collection. Urinary bladder shows [id number] distension. Appearance appears within physiologic limits. No focal bladder wall abnormality suggested. Left kidney measures 14.13 cm in greatest length. No hydronephrosis or nephrolithiasis, cystic or solid mass lesion. No perinephric fluid collection. IMPRESSION 1. Bilateral kidneys are morphologically normal. No perinephric fluid collections. No cystic or solid mass lesions. No renal calculi or obstruction. 2. Urinary bladder shows physiologic volume of urine. No focal abnormality suggested. Dictated by... Vishal Foss M.D. THIS IS AN ELECTRONICALLY VERIFIED REPORT Vishal Foss M.D. at 05/25/2016 8:06 PM [email or web address] [facility] A Service of [facility] RADIOLOGY TEXT RESULTS PATIENT: LUIS E GIRALDO SR LOCATION: C5 549-01 : [birth year] UNIT #: [id number] AGE: [address]: Estrella Calvert MD SEX: M ORDER DR: TD: 05/24/2016 04:14 JOB #: [id number] MEDICAL IMAGING REPORT Page 1 of 1 COPY
--- NOTE | ~2016-05-22 | EKG ---
PATIENT: LUIS E GIRALDO UNIT #: [id number] Ventricular Rate: 74 BPM Atrial Rate: 74 BPM P-R Interval: 154 ms QRS Duration: 96 ms Q-T Interval: 382 ms QTC Calculation(Bezet): 424 ms P [place]: 39 degrees Calculated R [place]: 28 degrees Calculated T [place]: 133 degrees Diagnosis Line: Normal sinus rhythm Diagnosis Line: Nonspecific T wave abnormality Diagnosis Line: Abnormal ECG Diagnosis Line: Diagnosis Line: Confirmed by ART MCKENZIE MD ([id number]) on 05/25/2016 Diagnosis Line: 7:43:34 AM INTERPRETING MD: JONAH GONZALEZ
[~2016-05-22 19:02] MED LIST changes: +LISINOPRIL5 MG PO
[2016-05-22] MEDS ORDERED: CUBICIN IV (19:17)
[2016-05-22] MEDS ORDERED: COREG PO (19:18)
[2016-05-22] MEDS ORDERED: GABAPENTIN800 MG PO (19:18)
[2016-05-22] MEDS ORDERED: LIPITOR80 MG PO (19:19)
[2016-05-22] MEDS ORDERED: LASIX80 MG PO (19:19)
[2016-05-22] MEDS ORDERED: HYDRALAZINE HC100 MG PO (19:19)
[2016-05-22] MEDS ORDERED: PRINIVIL5 MG PO (19:20)
[2016-05-22] MEDS ORDERED: LEVEMIR FL100 UNIT/1 SUBQ (19:20)
[2016-05-22] MEDS ORDERED: FERROUS SU324 ( 65 ) PO (19:21)
[2016-05-22] MEDS ORDERED: NOVOLOG100 U/ML SUBQ (19:21)
[2016-05-22] MEDS ORDERED: MEROPENEM-500 MG/50 IV (19:22)
[2016-05-22] MEDS ORDERED: ASPIRIN81 MG PO (19:22)
[2016-05-22] MEDS ORDERED: NITROGLYGERIN0.4 MG SL (19:23)
[2016-05-22] MEDS ORDERED: OMEPRAZOLE20 M1 PO (19:23)
[2016-05-22 20:11] LABS: BASOPHIL% 0.5 % (0-2.5); EOSINOPHIL# 0.5 X10e3 (0-0.7); EOSINOPHIL% 4.5 % (0.0-7.0); HEMATOCRIT 27.1 % (38.0-50.0); HEMOGLOBIN 9.1 gm/dL (13.0-16.0); LYMPHOCYTE# 2.3 X10e3 (1.0-3.5); LYMPHOCYTE% 21.6 % (17.0-45.0); MEAN CELL VOLUME 87.5 FL (83-96); MEAN CORPUSCULAR HEMOGLOBIN 29.2 PG (28-34); MEAN CORPUSCULAR HGB CONC 33.4 g/dL (30-36); MEAN PLATELET VOLUME 8.6 FL (6.5-11.5); MONOCYTE# 0.7 X10e3 (0-1.0); MONOCYTE% 6.3 % (3.0-12.0); NEUTROPHIL% 67.1 % (40-75); PLATELET COUNT 239 X10e3 (140-420); RED CELL DISTRIBUTION WIDTH 15.7 % (11.0-15.5); WHITE BLOOD COUNT 10.5 X10e3 (4.0-10.5)
[2016-05-22 20:32] LABS: DIFF IND NO
[2016-05-22 20:52] LABS: ALBUMIN SERUM 2.8 g/dL (3.5-5.0); BILIRUBIN, DIRECT 0.2 mg/dL (0.0-0.2); BILIRUBIN,INDIRECT 0.5 mg/dL (0.0-0.9); BILIRUBIN,TOTAL 0.7 mg/dL (0.2-2.0); BUN/CREATININE RATIO 22.14; CREATININE SERUM 1.4 mg/dL (0.6-1.4); GLOM FILT RATE Estimated 55.9 mL/min (>60); POTASSIUM 4.1 mmol/L (3.5-5.1); PROTEIN TOTAL SERUM 5.9 g/dL (6.0-8.3)
[2016-05-22 20:53] LABS: POC - CKMB <1.0 ng/mL (0.0-7.9); POC - TROPONIN <0.05 ng/mL (<=0.05)
[2016-05-23 07:54] LABS: CALCIUM SERUM 7.8 mg/dL (8.4-10.2); CREATININE SERUM 1.6 mg/dL (0.6-1.4); GLOM FILT RATE Estimated 47.9 mL/min (>60); POTASSIUM 4.3 mmol/L (3.5-5.1)
[2016-05-24 06:13] LABS: HEMATOCRIT 22.8 % (38.0-50.0); HEMOGLOBIN 7.6 gm/dL (13.0-16.0); MEAN CELL VOLUME 87.3 FL (83-96); MEAN CORPUSCULAR HEMOGLOBIN 29.1 PG (28-34); MEAN CORPUSCULAR HGB CONC 33.3 g/dL (30-36); MEAN PLATELET VOLUME 8.5 FL (6.5-11.5); RED BLOOD COUNT 2.62 X10e (3.90-5.60); RED CELL DISTRIBUTION WIDTH 15.3 % (11.0-15.5); WHITE BLOOD COUNT 7.3 X10e3 (4.0-10.5)
[2016-05-24 06:44] LABS: ALBUMIN SERUM 2.3 g/dL (3.5-5.0); BILIRUBIN,TOTAL 0.4 mg/dL (0.2-2.0); BUN/CREATININE RATIO 20.58; CREATININE SERUM 1.7 mg/dL (0.6-1.4); GLOM FILT RATE Estimated 44.7 mL/min (>60); MAGNESIUM 1.7 mg/dL (1.6-3.0); PHOSPHOROUS 4.2 mg/dL (2.5-4.6); POTASSIUM 4.2 mmol/L (3.5-5.1); PROTEIN TOTAL SERUM 4.7 g/dL (6.0-8.3)
[2016-05-24 18:19] LABS: HEMOGLOBIN 8.3 gm/dL (13.0-16.0)
[2016-05-25 06:14] LABS: BUN/CREATININE RATIO 21.25; CALCIUM SERUM 7.7 mg/dL (8.4-10.2); CREATININE SERUM 1.6 mg/dL (0.6-1.4); GLOM FILT RATE Estimated 47.8 mL/min (>60); POTASSIUM 3.9 mmol/L (3.5-5.1)
[2016-05-25 06:19] LABS: HEMOGLOBIN 7.8 gm/dL (13.0-16.0); MEAN CELL VOLUME 87.2 FL (83-96); MEAN CORPUSCULAR HEMOGLOBIN 28.3 PG (28-34); MEAN CORPUSCULAR HGB CONC 32.4 g/dL (30-36); MEAN PLATELET VOLUME 8.6 FL (6.5-11.5); RED BLOOD COUNT 2.76 X10e (3.90-5.60); RED CELL DISTRIBUTION WIDTH 15.1 % (11.0-15.5); WHITE BLOOD COUNT 7.9 X10e3 (4.0-10.5)
[2016-05-25 08:49] LABS: COMPLEMENT C3 126 mg/dL (90-180); COMPLEMENT C4 23 mg/dL (16-47)
[2016-05-25 20:51] LABS: URINE APPEARANCE CLEAR; URINE BILIRUBIN NEG (NEG); URINE BLOOD 1+ (NEG); URINE COLOR YELLOW; URINE GLUCOSE NEG (NEG); URINE KETONE NEG (NEG); URINE LEUKOCYTE ESTERASE NEG (NEG); URINE NITRATE NEG (NEG); URINE PH 6.5 (5-8); URINE PROTEIN 2+ (NEG); URINE SPECIFIC GRAVITY 1.013 (1.003-1.035); URINE UROBILINOGEN 0.2 MG/DL (NEG)
[2016-05-25 20:53] LABS: U HYALINE CASTS AUWI 0-2 /[LPF]; URBCS1 AUWI 25-50 /[HPF] (0-2); URINE BACTERIA AUWI NEG (NEGATIVE); URINE SQUAMOUS EPITHELIAL CELL NONE SEEN /[HPF]; UWBCS1 AUWI 0-2 (0-5)
[2016-05-26 05:24] LABS: HEMATOCRIT 23.5 % (38.0-50.0); HEMOGLOBIN 7.8 gm/dL (13.0-16.0); MEAN CELL VOLUME 86.6 FL (83-96); MEAN CORPUSCULAR HEMOGLOBIN 28.6 PG (28-34); MEAN CORPUSCULAR HGB CONC 33.1 g/dL (30-36); MEAN PLATELET VOLUME 8.1 FL (6.5-11.5); RED BLOOD COUNT 2.71 X10e (3.90-5.60); RED CELL DISTRIBUTION WIDTH 15.4 % (11.0-15.5); WHITE BLOOD COUNT 7.5 X10e3 (4.0-10.5)
[2016-05-26 05:44] LABS: ALBUMIN SERUM 2.4 g/dL (3.5-5.0); BILIRUBIN,TOTAL 0.4 mg/dL (0.2-2.0); BUN/CREATININE RATIO 19.41; CREATININE SERUM 1.7 mg/dL (0.6-1.4); GLOM FILT RATE Estimated 44.4 mL/min (>60); MAGNESIUM 1.7 mg/dL (1.6-3.0); PHOSPHOROUS 3.9 mg/dL (2.5-4.6); POTASSIUM 3.8 mmol/L (3.5-5.1)
[2016-05-26 09:37] LABS: ANA SCREEN Positive (Negative); ANA TITER (ANA) 1:40 (Negative); ANA TITER COMMENT Has been added (()); MYELOPEROXIDASE AB (PNL) <1.0 AI (<1.0); NUCLEAR PATTERN (ANA) Nucleolar (()); PROTEINASE-3 AB (PNL) <1.0 AI (<1.0)
[2016-05-27 05:14] LABS: HEMATOCRIT 23.8 % (38.0-50.0); MEAN CELL VOLUME 85.3 FL (83-96); MEAN CORPUSCULAR HEMOGLOBIN 28.7 PG (28-34); MEAN CORPUSCULAR HGB CONC 33.6 g/dL (30-36); MEAN PLATELET VOLUME 8.4 FL (6.5-11.5); RED BLOOD COUNT 2.79 X10e (3.90-5.60); RED CELL DISTRIBUTION WIDTH 14.8 % (11.0-15.5); WHITE BLOOD COUNT 7.1 X10e3 (4.0-10.5)
[2016-05-27 06:00] LABS: CALCIUM SERUM 8.1 mg/dL (8.4-10.2); CREATININE SERUM 1.8 mg/dL (0.6-1.4); GLOM FILT RATE Estimated 41.4 mL/min (>60); POTASSIUM 4.5 mmol/L (3.5-5.1)
[2016-05-28 06:17] LABS: HEMATOCRIT 28.6 % (38.0-50.0); HEMOGLOBIN 9.4 gm/dL (13.0-16.0); MEAN CELL VOLUME 85.9 FL (83-96); MEAN CORPUSCULAR HEMOGLOBIN 28.1 PG (28-34); MEAN CORPUSCULAR HGB CONC 32.7 g/dL (30-36); MEAN PLATELET VOLUME 8.3 FL (6.5-11.5); RED BLOOD COUNT 3.33 X10e (3.90-5.60); RED CELL DISTRIBUTION WIDTH 14.9 % (11.0-15.5)
[2016-05-28 06:19] LABS: WHITE BLOOD COUNT 11.7 X10e3 (4.0-10.5)
[2016-05-28 07:10] LABS: ALBUMIN SERUM 2.8 g/dL (3.5-5.0); BILIRUBIN,TOTAL 0.4 mg/dL (0.2-2.0); BUN/CREATININE RATIO 20.55; CALCIUM SERUM 8.7 mg/dL (8.4-10.2); CREATININE SERUM 1.8 mg/dL (0.6-1.4); GLOM FILT RATE Estimated 41.4 mL/min (>60); POTASSIUM 4.2 mmol/L (3.5-5.1); PROTEIN TOTAL SERUM 5.7 g/dL (6.0-8.3)
[2016-05-28] MEDS ORDERED: MEDROL DOSEPAK4 MG PO (12:05)
[2016-05-28] MEDS ORDERED: ACETAMINOPHEN PO (12:05)
[2016-05-28] MEDS ORDERED: ALLERGY25 MG PO (12:06)
[2016-05-28] MEDS ORDERED: HYDROCORTISONE30 G1 EXT (12:06)
[2016-05-28] MEDS ORDERED: IMDUR-ER30 M1 PO (13:51)
== END 2016-05-28 14:33 | disposition home or self-care (01) | DRG 682 ==
LOC: CED 19:02 → CEDOF 19:50 → C5B 22:12
PROVIDERS: Emergency Medicine; Hospitalist; Internal Medicine; Internal Medicine Nephrology; Physician Assistant Medical
DX: N17.9 Acute kidney failure, unspecified (principal); I50.33 Acute on chronic diastolic (congestive) heart failure; E11.22 Type 2 diabetes mellitus with diabetic chronic kidney disease; E11.42 Type 2 diabetes mellitus with diabetic polyneuropathy; L03.116 Cellulitis of left lower limb; Z68.43 Body mass index [BMI] 50.0-59.9, adult; I12.9 Hypertensive chronic kidney disease with stage 1 through stage 4 chronic kidney disease, or unspecified chronic kidney disease; N18.3 Chronic kidney disease, stage 3 (moderate); R80.9 Proteinuria, unspecified; I25.10 Atherosclerotic heart disease of native coronary artery without angina pectoris; Z95.810 Presence of automatic (implantable) cardiac defibrillator; Z79.4 Long term (current) use of insulin; D63.1 Anemia in chronic kidney disease; R21 Rash and other nonspecific skin eruption; I73.9 Peripheral vascular disease, unspecified; E66.01 Morbid (severe) obesity due to excess calories; Z79.82 Long term (current) use of aspirin; Z79.01 Long term (current) use of anticoagulants; Z88.0 Allergy status to penicillin; Z95.820 Peripheral vascular angioplasty status with implants and grafts
CPT/HCPCS: 36415; 71010; 76770; 80048; 80053; 80076; 81003; 82274; 82550; 82553; 82570; 82947; 83520; 83735; 83880; 84100; 84156; 84443; 84484; 85014; 85018; 85025; 85027; 86021; 86038; 86039; 86140; 86160; 86850; 86900; 86901; 87086; 89190; 93005; 96374; 99285; J0878; J1250; J1644; J1815; J1940; J2185; J2997